=== PATIENT | female | born 1950 | race Caucasian/White ===

== ENCOUNTER 2016-08-10 19:24 | Emergency (ER) | payer MEDICARE ==
--- NOTE | 2016-08-10 20:46 | ED ---
General Adult HPI - General Chief complaint: Upper Respiratory Infection Stated complaint: chest & back pain/congestion Time Seen by Provider: 08/10/16 20:28 Source: patient, RN notes reviewed Mode of arrival: ambulatory Limitations: no limitations - History of Present Illness Initial comments: Chief complaint and history of present illness is a 66-year-old female with a complaint of painful cough that goes from her chest to her back. Also left ear pain. Flu-type symptoms with muscle aches and pains for 2 days. - Related Data Home Medications Medication Instructions Recorded Confirmed Canagliflozin/Metformin HCl 1 tab PO BID 08/10/16 08/10/16 [Invokamet 50-1,000 mg Tablet] Cholecalciferol [Vitamin D3] 5,000 unit PO DAILY 08/10/16 08/10/16 Diclofenac Sodium 50 mg PO BID 08/10/16 08/10/16 Lansoprazole [Prevacid] 15 mg PO DAILY 08/10/16 08/10/16 guaiFENesin [Mucinex] 600 mg PO Q12H PRN 08/10/16 08/10/16 Previous Rx's Medication Instructions Recorded Amoxicillin 500 mg PO Q8H #30 cap 08/10/16 Ibuprofen [Motrin] 600 mg PO Q6HR PRN #20 tab 08/10/16 Allergies Allergy/AdvReac Type Severity Reaction Status Date / Time methylprednisolone AdvReac MUSCLE Verified 08/10/16 20:26 SPASMS Review of Systems ROS Statement: Those systems with pertinent positive or pertinent negative responses have been documented in the HPI. Review of systems minimal no headache no stiff neck. She has a cough nonproductive causes pain to her front chest and back. Nausea vomiting 2 days ago. [place] feverish at home. All systems are reviewed. Past medical problems significant for insulin-dependent diabetes mellitus she denies any coronary artery disease. She has hyperlipidemia, osteoarthritis. Her surgeries include a , shoulder surgery. Family history melanoma. She has ALLERGIES to steroids by mouth but not IM. Nonsmoker nondrinker ROS Other: All systems not noted in ROS Statement are negative. Past Medical History Past Medical History: Coronary Artery Disease (CAD), Diabetes Mellitus, Hyperlipidemia, Osteoarthritis (OA) History of Any Multi-Drug Resistant Organisms: None Reported Past Surgical History: Section, Orthopedic Surgery Additional Past Surgical History / Comment(s): Shoulder surgery,thyroid surgery , csectionx 2 Past Psychological History: No Psychological Hx Reported Smoking Status: Never smoker Past Alcohol Use History: None Reported Past Drug Use History: None Reported General Exam - General Exam Comments Initial Comments: General: The patient is awake and alert, dry cough which causes anterior chest and back pain. Ongoing for 2 days. Muscle aches and pains, flu-type symptoms. Vital signs temp 98.5 pulse 100 respiratory rate 20 pulse ox on percent room air blood pressure 146/82. Elevated systolic noted. Pain she is in pain. She'll be following up with her family physician in the next week. Eye: Pupils are equal, round and reactive to light, extra-ocular movements are intact ; there is normal conjunctiva bilaterally. No signs of icterus. Ears, nose, mouth and throat: There are moist mucous membranes and no oral lesions. Left red tympanic membrane left otitis media.Neck: The neck is supple, there is no tenderness , no anterior cervical lymphadenopathy. Cardiovascular: There is a regular rate and rhythm. No murmur, rub or gallop is appreciated. Respiratory: Lungs are clear to auscultation, respirations are non-labored, breath sounds are equal. No wheezes, stridor, rales, or rhonchi. dry cough painful to both her anterior chest and back area. Gastrointestinal: Soft, non-distended, non-tender abdomen without masses or organomegaly noted. There is no rebound or guarding present. No CVA tenderness. Bowel sounds are unremarkable. Back: There is no tenderness to palpation in the midline. There is no obvious deformity. No rashes noted. Musculoskeletal: Normal ROM, no tenderness, There is no pedal edema. There is no calf tenderness or swelling. Sensation intact. Pulses equal bilaterally 2+. Neurological: No neuro deficits noted. Skin: Skin is warm and dry and no rashes or lesions are noted. Limitations: no limitations Course Vital Signs 08/10/16 08/10/16 19:29 20:32 Temperature 98.5 F 99.1 F Pulse Rate 100 Respiratory 20 Rate Blood Pressure 146/82 O2 Sat by Pulse 100 Oximetry Medical Decision Making - Medical Decision Making Medical decision making; Patient had a chest x-ray done AP and lateral views and reviewed by radiologist his impression is there is elevation of the hemidiaphragms bilaterally, particularly on the right. This compressed the lung parenchyma bilaterally. There is no definite focal airspace opacity, pleural effusion, or pneumothorax seen. The cardiac silhouette size within normal limits. The osseous structures are intact. Impression; no definite acute cardiopulmonary process. As read by Dr. Master Virgil Ty was reported to be negative. The patient be treated with amoxicillin for left otitis media. Advised to use ibuprofen for pain and fever. Follow-up with family physician return emergency room as needed - Lab Data Lab Results 08/10/16 Range/Units 20:58 Influenza Type A RNA Not Detected (Not Detectd) Influenza Type B (PCR) Not Detected (Not Detectd) Disposition Clinical Impression: Left otitis media Disposition: HOME SELF-CARE Condition: Stable Instructions: Upper Respiratory Infection (ED), Otitis Media (ED) Additional Instructions: Use ibuprofen for pain and fever. Take amoxicillin until completed. Follow-up family physician return emergency room as needed Prescriptions: Amoxicillin 500 mg PO Q8H #30 cap Ibuprofen [Motrin] 600 mg PO Q6HR PRN #20 tab PRN Reason: Pain Time of Disposition: 21:47
--- NOTE | 2016-08-10 21:07 | XR ---
EXAMINATION TYPE: XR chest 2V DATE OF EXAM: 08/10/2016 8:56 PM COMPARISON: NONE HISTORY: Cough and congestion TECHNIQUE: Frontal and lateral views of the chest are obtained. FINDINGS: There is elevation of the hemidiaphragms bilaterally, particularly on the right. This comp resses the lung parenchyma bilaterally. There is no definite focal air space opacity, pleural effusion, or pneumothorax seen. The cardiac si lhouette size is within normal limits. The osseous structures are intact. IMPRESSION: No definite acute cardiopulmonary process.
[2016-08-10] MEDS ORDERED: AMOXICILLIN 500MG STARTER PACK 3 CAP BTL PO STA (21:21)
[2016-08-10] MEDS ORDERED: IBUPROFEN 600 MG STARTER PACK 4 TAB BTL PO STA (21:22)
[2016-08-10 21:56] VITALS: BP 174/81; PULSE 81; RESP 18; TEMP 97.2
== END 2016-08-10 21:56 | disposition home or self-care (01) ==
LOC: EC 19:24
DX: H66.92 Otitis media, unspecified, left ear (principal); J06.9 Acute upper respiratory infection, unspecified; M79.1 Myalgia; I25.10 Atherosclerotic heart disease of native coronary artery without angina pectoris; E11.9 Type 2 diabetes mellitus without complications; E78.5 Hyperlipidemia, unspecified; M19.90 Unspecified osteoarthritis, unspecified site; Z79.84 Long term (current) use of oral hypoglycemic drugs; Z79.899 Other long term (current) drug therapy; Z79.1 Long term (current) use of non-steroidal anti-inflammatories (NSAID); Z88.8 Allergy status to other drugs, medicaments and biological substances
CPT/HCPCS: 71020; 87502; 99283

== ENCOUNTER → 2020-03-23 | Outpatient (CLI) | payer MEDICARE ==
--- NOTE | 2020-03-23 18:59 | XR ---
EXAMINATION TYPE: XR scoliosis survey, 2 views DATE OF EXAM: 03/23/2020 Comparison: None Clinical History: 69-year-old female Scoliosis Findings: There is a rotary levoconvex scoliotic curvature centered along the lumbar spine with Martinez angle of 1 5 degrees. There is a slight dextroconvex undulation centered at the thoracolumbar junction and an ad ditional levoconvex curvature centered on the upper thoracic spine with Martinez angle of 12 degrees. Lateral view of the lumbar spine shows mild to moderate degenerative disc disease throughout and hype rtrophic facet arthropathy. Grade 1 anterolisthesis at L2-L3 and L4-L5. Grade 1 retrolisthesis at L1- L2. Impression: Levoconvex curvature centered at the upper thoracic spine with Martinez angle of 12 degrees and a rotary levoconvex curvature of the lumbar spine with Martinez angle of 15 degrees.
--- NOTE | 2020-03-23 22:51 | MR ---
EXAMINATION TYPE: MR cspine/tspine/lspine wo con DATE OF EXAM: 03/23/2020 COMPARISON: Scoliosis survey same day. Outside cervical and lumbar spine x-rays February 26, 2020. HISTORY: Cervicalgia, pain in T-spine, low back pain all per order. Low back pain for 6 months causin g pain into both thighs, feet, and calves per patient. TECHNIQUE: Multiplanar, multisequence imaging of the cervical, thoracic, and lumbar spine are all per formed without IV contrast. FINDINGS: C-SPINE: FINDINGS: Sagittal images of the cervical spine show the craniocervical junction to appear within nor mal limits. The cervical and upper thoracic spinal cord is normal in caliber and signal. There is gr cherelle 1 retrolisthesis C5 on C6 and C6 on C7. The vertebral body heights are normal. Moderate disc spa ce narrowing C5-C6 and C6-C7 levels with moderate anterior spurring The bone marrow signal intensity is within normal limits. Axial images show the C2-C3 level to appear within normal limits. Axial images at C3-C4 level show broad-based right paracentral disc protrusion effacing the anterior thecal sac and uncovertebral facet degenerative changes bilaterally causing moderate right greater th an left bilateral neural foraminal narrowing. Axial images at C4-C5 level show uncovertebral facet degenerative changes greater on the left with ce ntral disc protrusion. There is effacement of the anterior thecal sac and mild bilateral neural gurdeep inal narrowing. Axial images at C5-C6 level show spondylolisthesis with broad-based posterior disc protrusion effacin g anterior thecal sac and causing advanced left and moderate to advanced right-sided neural foraminal narrowing. Axial images at C6-C7 level show spondylolisthesis and broad-based right paracentral disc protrusion effacing ventral thecal sac and causing moderate right greater than left bilateral neural foraminal n arrowing. Axial images at C7-T1 level show broad-based posterior disc protrusion effacing anterior thecal sac a nd causing mild bilateral neural foraminal narrowing. There is an absent right thyroid lobe suspected. There is greater than 1 cm left thyroid nodule axial image 19. IMPRESSION: Multilevel degenerative changes as detailed above. Spondylolisthesis and degenerative kathy nges most prominent at C5-C6 and C6-C7 levels. Greater than 1 cm left thyroid nodule, thyroid ultraso und follow-up advised if this is not known finding. T-SPINE: FINDINGS: Spinal cord shows normal course, caliber, and signal as it courses the thoracic spine. Vert ebral body heights are satisfactory. There is levoconvex scoliotic curvature centered in the upper th oracic spine though less prominent than on same day plain films. There is hemangioma involving the T7 vertebra posteriorly sagittal image 9. This space heights are maintained. Tiny posterior disc hernia tions are present T1-T2, T5-T6, T6-T7, and T9-T10 through the T12-L1 levels on sagittal images. Mild multilevel anterior spurring. Review of the axial images confirms above disc herniations most prominent in the lower thoracic spine where there is additional uncovertebral facet degenerative change effacing posterior lateral thecal sac at T10-T11 level on axial image 9. Slight asymmetric thickening left adrenal gland favors benign lipid rich hyperplasia. IMPRESSION: Slight levoconvex scoliotic curvature with multilevel small disc herniations greatest in the lower thoracic spine as detailed above. L-SPINE: There is slight levoconvex scoliotic curvature centered at L3 level less prominent than sta nding plain films. Sagittal images of the lumbar spine show vertebral body heights to appear satisfa ctory. Straightening of lumbar spine is present with grade 1 retrolisthesis L1 on L2 and L5 and S1. G rade 1 anterolisthesis L4 and L5 is present. Multilevel disc desiccation is present. There is advance d disc space narrowing L5-S1 level. There is moderate to advanced disc space narrowing L2-L3 level wi th heterogeneous Modic type II endplate 3 endplate changes along with focal moderate anterior spurrin g. The conus medullaris is normal in position and signal ending at T12-L1 disc space level. Axial images at T12-L1 level shows left paracentral disc protrusion effacing the anterolateral thecal sac.. Bilateral neural foramina. Axial images at L1-L2 level show spondylolisthesis with mild/moderate broad disc bulge effacing the a nterior thecal sac and mild facet arthropathy bilaterally, patent bilateral neural foramina. Axial images at L2-L3 level show moderate to advanced broad-based disc bulge effacing the anterior th ecal sac with moderate facet degenerative changes and ligament flavum hypertrophy causing posterolate ral thecal sac. There is moderate right and mild left-sided neural foraminal narrowing. Axial images at L3-L4 level shows moderate broad-based disc bulge effacing the anterior thecal sac. T here is moderate facet degenerative change and ligamentum flavum hypertrophy effacing posterior later al thecal sac. There is mild right and moderate left-sided neural foraminal narrowing noted. Axial images at L4-L5 level shows moderate to advanced facet degenerative changes and ligament flavum hypertrophy effacing posterior lateral thecal sac. There is mild to moderate broad disc bulge minima lly effacing the anterior thecal sac. Patent bilateral neural foramina noted. Axial images at L5-S1 level mild facet arthropathy bilaterally. There is focal central disc protrusio n but the spinal canal is preserved as there is increased epidural fat. Patent bilateral neural gurdeep gretchen noted. IMPRESSION: Straightening of the lumbar spine with multilevel degenerative changes, greatest degree o f spinal canal effacement or stenosis L2-L3 and L3-L4 levels as detailed above.
== END | disposition home or self-care (01) ==
LOC: RADMRIMAIN 12:24
PROVIDERS: ATTEND Orthopaedic Surgery
DX: M48.061 Spinal stenosis, lumbar region without neurogenic claudication (principal); M51.24 Other intervertebral disc displacement, thoracic region; M43.12 Spondylolisthesis, cervical region; M47.812 Spondylosis without myelopathy or radiculopathy, cervical region; M47.816 Spondylosis without myelopathy or radiculopathy, lumbar region; M41.84 Other forms of scoliosis, thoracic region; M41.86 Other forms of scoliosis, lumbar region
CPT/HCPCS: 72082; 72141; 72146; 72148

== ENCOUNTER → 2020-03-26 | Outpatient (CLI) | payer MEDICARE ==
--- NOTE | 2020-03-26 12:52 | CT ---
EXAMINATION TYPE: CT cervical spine wo con DATE OF EXAM: 03/26/2020 COMPARISON: None HISTORY: 69-year-old female M54.2, cervicalgia, Neck pain TECHNIQUE: Contiguous axial scanning of the cervical spine without IV contrast. Coronal and sagittal reconstructions performed. CT DLP: 409 mGycm Automated exposure control for dose reduction was used. FINDINGS: No craniocervical junction unremarkable, predental space widening, or prevertebral soft tissue swelli ng. Reversal of the normal cervical lordosis. Grade 1 anterolisthesis at C3-C4 and C4-C5 and grade 1 retrolisthesis at C5-C6. Moderate to advanced discussion plate degenerative change at C5-C6 with a disc osteophyte complex cau sing a moderate spinal canal stenosis, AP canal dimension estimated at 6.8 mm. No acute fracture the cervical spine. Multilevel facet and uncovertebral joint arthropathy. At C3-C4, [id number] right neuroforaminal stenosis. At C4-C5, moderate left and mild right neuroforaminal stenosis. At C5-C6, severe left and moderate to severe right neuroforaminal stenosis. At C6/C7, moderate to severe right and moderate left neuroforaminal stenosis. Diminutive right lobe of the thyroid gland. IMPRESSION: 1. MODERATE TO SEVERE DEGENERATIVE DISC DISEASE PARTICULARLY AT C5-C6 WHERE DISC OSTEOPHYTE COMPLEX C ONTRIBUTES TO A MODERATE SPINAL CANAL STENOSIS. 2. HYPERTROPHIC FACET AND UNCOVERTEBRAL JOINT ARTHROPATHY WITH VARIABLE NEURAL FORAMINAL STENOSES OUTLINED ABOVE. 3. DEGENERATIVE GRADE 1 SPONDYLOLISTHESES AT C3-C4, C4-C5, AND C5-C6.
--- NOTE | 2020-03-26 13:20 | CT ---
EXAMINATION TYPE: CT thoracic spine wo con DATE OF EXAM: 03/26/2020 COMPARISON: None HISTORY: 69-year-old female M54.6, Thoracic pain TECHNIQUE: Contiguous axial scanning of the thoracic spine without IV contrast. Coronal and sagittal reconstructions performed. CT DLP: 1032.16 mGycm Automated exposure control for dose reduction was used. FINDINGS: Incidental anterior cortical irregularity involving the sternal manubrium. Refer to sagittal image 20 . Possible motion artifact. Correlate for any history of injury and for any point tenderness here to exclude a fracture. Vertebral body heights are preserved and alignment is maintained. Scattered mild to moderate anterior endplate spondylosis especially upper thoracic spine and at T8-T9 . Suggestion of a broad-based posterior disc protrusion at T12-L1 may cause mild spinal canal narrowing . On the left, facet arthropathy contributes to moderate neural foraminal stenosis at T10-T11 and mil d at T9-T10. On the right, changes result in mild neural foraminal stenosis at T9-T10 and T10-T11. IMPRESSION: 1. NO VERTEBRAL COMPRESSION COLLAPSE OR MALALIGNMENT. SCATTERED MILD DEGENERATIVE DISC DISEASE ESPECI ALLY IN THE LOWER THORACIC SPINE. 2. SCATTERED FACET ARTHROPATHY WELL RESULTING IN MILD TO MODERATE NEURAL FORAMINAL STENOSES AT T9- T10 AND T10-T11. 3. BROAD-BASED DISC PROTRUSION AT T12-L1 MAY CAUSE MILD NARROWING OF THE SPINAL CANAL. 4. ANTERIOR CORTICAL IRREGULARITY INVOLVING THE STERNAL MANUBRIUM, SUSPECTED MOTION ARTIFACT. CORRELA TE FOR ANY PINPOINT TENDERNESS AND HISTORY OF INJURY TO EXCLUDE A FRACTURE HERE.
--- NOTE | 2020-03-26 13:33 | CT ---
EXAMINATION TYPE: CT lumbar spine wo con DATE OF EXAM: 03/26/2020 COMPARISON: None HISTORY: 69-year-old female M54.5, lumbago, Low back pain TECHNIQUE: Contiguous axial scanning of the lumbar spine without IV contrast. Coronal and sagittal re constructions performed. CT DLP: 1098.9 mGycm Automated exposure control for dose reduction was used. FINDINGS: Interbody ankylosis at L5-S1. 5 lumbar type vertebral bodies. Slight degenerated levoconvex curvature of the lumbar spine. Advanced degenerative disc disease L2-L3 and [id number] additional levels. Vertebral body heights are preserved. Hypertrophic facet arthropathy throughout with grade 1 anterolisthesis at L5-S1. Disc bulging is present throughout. There is also a component of congenital spinal canal stenosis in the lumbar spine with AP canal dimension of 9 mm. Overall moderate spinal canal stenosis at L3-L4 and possibly moderate to severe at L4-L5 and L2-L3. On the left, there is variable mild neural foraminal narrowing throughout. On the right, moderate foraminal stenosis at L2-L3 and mild at additional levels. IMPRESSION: 1. MODERATE MULTILEVEL DEGENERATIVE DISC DISEASE SUPERIMPOSED ON A CONGENITAL SPINAL CANAL STENOSIS. MORE ADVANCED DEGENERATIVE DISC DISEASE AT L2-L3. 2. HYPERTROPHIC FACET ARTHROPATHY THROUGHOUT WITH DEGENERATIVE GRADE 1 ANTEROLISTHESIS AT L4-L5. 3. DEGENERATIVE INTERBODY ANKYLOSIS AT L5-S1. 4. MODERATE SPINAL CANAL STENOSIS AT L3-L4, POSSIBLY MODERATE TO SEVERE AT L2-L3 AND L4-L5. 5. MODERATE RIGHT NEURAL FORAMINAL STENOSIS AT L2-L3.
== END | disposition home or self-care (01) ==
LOC: RADCTMAIN 10:34
PROVIDERS: ATTEND Orthopaedic Surgery
DX: M48.02 Spinal stenosis, cervical region (principal); M48.04 Spinal stenosis, thoracic region; M48.061 Spinal stenosis, lumbar region without neurogenic claudication; M51.24 Other intervertebral disc displacement, thoracic region; M43.12 Spondylolisthesis, cervical region; M43.16 Spondylolisthesis, lumbar region; M50.322 Other cervical disc degeneration at C5-C6 level; M51.34 Other intervertebral disc degeneration, thoracic region; M51.36 Other intervertebral disc degeneration, lumbar region; M47.812 Spondylosis without myelopathy or radiculopathy, cervical region; M47.814 Spondylosis without myelopathy or radiculopathy, thoracic region; M47.816 Spondylosis without myelopathy or radiculopathy, lumbar region; M25.78 Osteophyte, vertebrae; M43.27 Fusion of spine, lumbosacral region
CPT/HCPCS: 72125; 72128; 72131

== ENCOUNTER → 2020-05-05 | Day surgery (SDC) | payer MEDICARE ==
[2020-05-01 13:22] VITALS: BMI 33.0
[~2020-05-05] MED LIST: INSULIN ASPART (NovoLOG) 100 UNIT/ML VIAL SQ ONE; LACTATED RINGERS 1,000 ML IV SCH
[2020-05-05 13:07] VITALS: BP 185/84; PULSE 80; RESP 17; TEMP 96.9
[2020-05-05 13:08] LABS: Glucose,Whole Blood 311 mg/dL (75-99)
--- NOTE | 2020-05-05 13:16 | P.PN ---
Progress Note - Text Progress Note Date: 05/05/20 This is 69 years old female who is scheduled to have right-sided transforaminal epidural steroid injections under fluoroscopy guidance, and she is diagnosed with lumbar radiculopathy lumbar degenerative disc disease and lumbar spondylosis, and the preop holding area after I explained to the patient the procedure risk and benefit we checked the blood sugar , and it was 311 , patient is diabetic and in the view that we need to give steroid to perform the procedure, this will increase the risk of complications secondary to the procedure for this reason ,I will cancel the procedure ,and patient will see her primary care and she will follow up with pain clinic after her blood sugars stabilized, at that time we will do right-sided transforaminal epidural steroid injection at L2-3 and L3 4
[2020-05-05 13:32] LABS: Glucose,Whole Blood 335 mg/dL (75-99)
== END ==
LOC: ORPAIN 12:42
PROVIDERS: ATTEND Specialist
DX: M47.26 Other spondylosis with radiculopathy, lumbar region (principal); M51.16 Intervertebral disc disorders with radiculopathy, lumbar region; Z53.8 Procedure and treatment not carried out for other reasons; E11.65 Type 2 diabetes mellitus with hyperglycemia; Z88.8 Allergy status to other drugs, medicaments and biological substances

== ENCOUNTER 2020-08-30 16:42 | Emergency (ER) | payer MEDICARE ==
[2020-08-30 16:49] VITALS: TEMP 97.8
[2020-08-30] MEDS ORDERED: ONDANSETRON 4 MG/2 ML VIAL IVP STA (17:01)
[2020-08-30] MEDS ORDERED: SODIUM CHLORIDE 0.9% 500 ML 500 ML IV ONE (17:01)
[2020-08-30] MEDS ORDERED: MECLIZINE 12.5 MG TAB PO STA (17:01)
[2020-08-30 17:12] LABS: Basophils # (A) 0.1 k/uL (0-0.2); Basophils % (A) 1 %; Eosinophils # (A) 0.1 k/uL (0-0.7); Eosinophils % (A) 2 %; HCT 40.7 % (34.0-46.0); Lymphocytes # (A) 2.4 k/uL (1.0-4.8); Lymphocytes % (A) 32 %; MCH 31.4 pg (25.0-35.0); MCHC 34.3 g/dL (31.0-37.0); MCV 91.5 fL (80.0-100.0); Mean Platelet Volume 8.4; Monocytes # (A) 0.3 k/uL (0-1.0); Monocytes % (A) 4 %; Neutrophils # (A) 4.5 k/uL (1.3-7.7); Neutrophils % (A) 61 %; Platelet Count 183 k/uL (150-450); RBC 4.45 m/uL (3.80-5.40); RDW 13.6 % (11.5-15.5); WBC 7.4 k/uL (3.8-10.6)
--- NOTE | 2020-08-30 17:17 | ED ---
Dizziness HPI - General Chief Complaint: Dizziness Stated Complaint: Dizziness Time Seen by Provider: 08/30/20 16:50 Source: patient Mode of arrival: wheelchair Limitations: no limitations - History of Present Illness Initial Comments: This is a 70-year-old female who presents emergency department for dizziness and nausea. The patient states that it started around 9 AM after she took her shower this morning. She describes it as a room spinning sensation which gives her motion sickness. She states that she did vomit once today. She states that she has no focal neurologic deficits. She denies any focal weakness, numbness, difficult he was speech or swallowing. She states that she is been able to walk okay. However when she turns her head a certain way she gets these significant episodes of dizziness which then slowly subside over the next few minutes. She does have a history of vertigo in the past and states that this is similar. She currently denies any dizziness when sitting still. No other complaints. - Related Data Home Medications Medication Instructions Recorded Confirmed Hydrocodone/Acetaminophen [[place] 1 tab PO Q8H PRN 05/01/20 08/30/20 10-325] Atorvastatin [Lipitor] 20 mg PO HS 08/30/20 08/30/20 Canagliflozin/Metformin HCl 1 tab PO BID 08/30/20 08/30/20 [Invokamet 150-1,000 mg Tablet] Diclofenac Sodium [Voltaren] 150 mg PO DAILY 08/30/20 08/30/20 Insulin Lispro [Admelog] See Protocol SQ DAILY PRN MDD OVER 08/30/20 08/30/20 150 metFORMIN HCL 1,000 mg PO BID 08/30/20 08/30/20 Previous Rx's Medication Instructions Recorded Meclizine [Antivert] 25 mg PO TID #21 tab 08/30/20 Allergies Allergy/AdvReac Type Severity Reaction Status Date / Time gabapentin [From Neurontin] AdvReac MUSCLE Verified 08/30/20 18:19 SPASMS methylprednisolone AdvReac MUSCLE Verified 08/30/20 18:19 SPASMS Review of Systems ROS Statement: Those systems with pertinent positive or pertinent negative responses have been documented in the HPI. ROS Other: All systems not noted in ROS Statement are negative. Past Medical History Past Medical History: Coronary Artery Disease (CAD), Diabetes Mellitus, Hyperlipidemia, Osteoarthritis (OA), Thyroid Disorder History of Any Multi-Drug Resistant Organisms: None Reported Past Surgical History: Section Additional Past Surgical History / Comment(s): Shoulder surgery,thyroid surgery, csectionx 2 Past Psychological History: No Psychological Hx Reported Smoking Status: Never smoker Past Alcohol Use History: None Reported Past Drug Use History: None Reported General Exam - General Exam Comments Initial Comments: Constitutional: Awake alert Appears comfortable Head: Normocephalic atraumatic Eyes: no conjunctival injection No scleral icterus EOMI, there is nystagmus with Jose Rafael-Hallpike testing to the right. The nystagmus is fatigable after a few seconds Neck: No JVD Supple Heart: Regular rate rhythm normal S1-S2 no murmurs Lungs: Clear to auscultation bilaterally No wheezing No rales Abdomen: Soft nondistended nontender Extremities: Non edematous DP pulses intact Radial pulses intact Neuro: A&Ox3, crowner 2 through 12 are grossly intact, 5 out of 5 strength in upper and lower extremities bilaterally, normal finger to nose and heel to batista testing bilaterally No focal neurologic deficits Psych: Appropriate mood and affect Limitations: no limitations Course Vital Signs 08/30/20 08/30/20 16:46 18:24 Temperature 97.8 F Pulse Rate 76 87 Respiratory 20 16 Rate Blood Pressure 170/78 138/78 O2 Sat by Pulse 97 99 Oximetry EKG Findings - EKG Comments: EKG Findings:: EKG showing normal sinus rhythm with a rate of 77. There is no abnormal ST 7 changes or T-wave or QTC is 441. Other intervals normal. No ectopy. Medical Decision Making - Medical Decision Making Is a 70-year-old female who presents emergency department for dizziness. The patient had no focal neurologic findings on examination. She did not appear to be acutely distressed however did have a positive Jose Rafael-Hallpike to the right. The patient was given Antivert and Zofran with complete resolution of her symptoms. She was able to move her head back and forth without any recurrence of her symptoms. The patient's blood work was performed and unremarkable. EKG was unremarkable. The patient's going to be sent home with Antivert to use as needed for vertigo. Follow up closely with her primary doctor. She can return emergency Department if she has persistent or worsening symptoms or she devel oped any focal neurologic symptoms. All questions were answered. - Lab Data Result diagrams: 08/30/20 16:54 08/30/20 16:54 Lab Results 08/30/20 08/30/20 Range/Units 16:54 16:54 WBC 7.4 (3.8-10.6) k/uL RBC 4.45 (3.80-5.40) m/uL Hgb 14.0 (11.4-16.0) gm/dL Hct 40.7 (34.0-46.0) % MCV 91.5 (80.0-100.0) fL MCH 31.4 (25.0-35.0) pg MCHC 34.3 (31.0-37.0) g/dL RDW 13.6 (11.5-15.5) % Plt Count 183 (150-450) k/uL MPV 8.4 Neutrophils % 61 % Lymphocytes % 32 % Monocytes % 4 % Eosinophils % 2 % Basophils % 1 % Neutrophils # 4.5 (1.3-7.7) k/uL Lymphocytes # 2.4 (1.0-4.8) k/uL Monocytes # 0.3 (0-1.0) k/uL Eosinophils # 0.1 (0-0.7) k/uL Basophils # 0.1 (0-0.2) k/uL Sodium 133 L (137-145) mmol/L Potassium 4.4 (3.5-5.1) mmol/L Chloride 103 (98-107) mmol/L Carbon Dioxide 23 (22-30) mmol/L Anion Gap 7 mmol/L BUN 17 (7-17) mg/dL Creatinine 0.57 (0.52-1.04) mg/dL Est GFR (CKD-EPI)AfAm >90 (>60 ml/min/1.73 sqM) Est GFR (CKD-EPI)NonAf >90 (>60 ml/min/1.73 sqM) Glucose 222 H (74-99) mg/dL Calcium 8.9 (8.4-10.2) mg/dL Total Bilirubin 0.5 (0.2-1.3) mg/dL AST 26 (14-36) U/L ALT 32 (4-34) U/L Alkaline Phosphatase 83 (38-126) U/L Total Protein 6.3 (6.3-8.2) g/dL Albumin 3.4 L (3.5-5.0) g/dL Disposition Clinical Impression: Vertigo Disposition: HOME SELF-CARE Condition: Stable Instructions (If sedation given, give patient instructions): Vertigo (ED) Prescriptions: Meclizine [Antivert] 25 mg PO TID #21 tab Is patient prescribed a controlled substance at d/c from ED?: No Referrals: Clark Lockwood MD [Primary Care Provider] - 1-2 days
[2020-08-30 17:23] LABS: ALT 32 U/L (4-34); AST 26 U/L (14-36); African American GFR (CKD) >90 (>60 ml/min/1.73 sqM); Albumin 3.4 g/dL (3.5-5.0); Alkaline Phosphatase 83 U/L (38-126); Anion Gap 7 mmol/L; Blood Urea Nitrogen 17 mg/dL (7-17); Calcium 8.9 mg/dL (8.4-10.2); Carbon Dioxide 23 mmol/L (22-30); Chloride 103 mmol/L (98-107); Glucose 222 mg/dL (74-99); Non-African American GFR(CKD) >90 (>60 ml/min/1.73 sqM); Potassium 4.4 mmol/L (3.5-5.1); Sodium 133 mmol/L (137-145); Total Bilirubin 0.5 mg/dL (0.2-1.3); Total Protein 6.3 g/dL (6.3-8.2)
[2020-08-30 18:25] VITALS: BP 138/78; PULSE 87; RESP 16
== END 2020-08-30 18:25 | disposition home or self-care (01) ==
LOC: EC 16:42
DX: R42 Dizziness and giddiness (principal); I25.10 Atherosclerotic heart disease of native coronary artery without angina pectoris; E11.9 Type 2 diabetes mellitus without complications; E78.5 Hyperlipidemia, unspecified; M19.90 Unspecified osteoarthritis, unspecified site; Z79.4 Long term (current) use of insulin
CPT/HCPCS: 36415; 93005; 80053; 85025; 99284; 96374; 96361; J2405

== ENCOUNTER 2020-10-13 10:19 | Inpatient (IN) | payer MEDICARE ==
[2020-10-13 10:28] LABS: Glucose,Whole Blood 263 mg/dL (75-99)
--- NOTE | 2020-10-13 11:03 | ED ---
General Adult HPI - General Chief complaint: Dizziness Stated complaint: slurred speech/dizzy/vision changes Time Seen by Provider: 10/13/20 10:22 Source: patient Mode of arrival: wheelchair Limitations: no limitations - History of Present Illness Initial comments: Dictation was produced using [employer] dictation software. please excuse any grammatical, word or spelling errors. This patient was cared for during a federal and state declared state of emergency secondary to Covid 19 Chief Complaint: 70-year-old female presenting with strokelike symptoms for 3 weeks History of Present Illness: Patient is a 70-year-old female she has past medical history coronary artery disease, diabetes dyslipidemia. States that 3 weeks again developing dizziness and slurred speech. She had not sought medical attention for this. She called primary care doctor today and was told to come to the emergency department. Patient lives at home by herself. The ROS documented in this emergency department record has been reviewed and confirmed by me. Those systems with pertinent positive or negative responses have been documented in the HPI. All other systems are other negative and/or noncontributory. PHYSICAL EXAM: General Impression: Alert and oriented x3, not in acute distress HEENT: Normocephalic atraumatic, extra-ocular movements intact, pupils equal and reactive to light bilaterally, mucous membranes moist. Cardiovascular: Heart regular rate and rhythm Chest: Able to complete full sentences, no retractions, no tachypnea Abdomen: abdomen soft, non-tender, non-distended, no organomegaly Musculoskeletal: Pulses present and equal in all extremities, no peripheral edema Motor: no focal deficits noted Neurological: Left lower facial droop with deficit to light touch to the left lower face. No drift of the extremities. She does have slurred speech. No aphasia. Skin: Intact with no visualized rashes Psych: Normal affect and mood ED course: 70 yo female with strokelike symptoms for 3 weeks. Patient has an NIH of 3. Vital signs upon arrival are within acceptable limits. Patient's symptomatic for 3 weeks. Patient that a candidate for TPA or thrombectomy. Laboratory evaluation obtained. CBC, coag panel, metabolic panel is unremarkable. Troponin is negative. Magnesium slightly depressed at 1.4. Patient given magnesium. Computed tomography scan the brain shows no acute injury cranial processes. CT angios the head and neck was obtained showing no large vessel occlusion. Patient will be admitted for CVA. Neurology consulted. Patient given aspirin. Case discussed with sound physician Dr. Dubois. EKG interpretation: Ventricular rate 80, normal sinus rhythm, TN interval 160, QRS 68, QTC 422. No TN prolongation, no QTC prolongation, no ST or T-wave changes noted. EKG compared to 08/30/2020 showing no changes. Overall, this EKG is unremarkable - Related Data Home Medications Medication Instructions Recorded Confirmed Hydrocodone/Acetaminophen [[place] 1 tab PO Q8H PRN 05/01/20 10/13/20 10-325] Atorvastatin [Lipitor] 20 mg PO HS 08/30/20 10/13/20 Diclofenac Sodium [Voltaren] 75 mg PO BID 08/30/20 10/13/20 Insulin Lispro [Admelog] See Protocol SQ ACHS PRN 08/30/20 10/13/20 metFORMIN HCL 1,000 mg PO BID 08/30/20 10/13/20 Canagliflozin [Invokana] 300 mg PO DAILY 10/13/20 10/13/20 Meclizine [Antivert] 25 mg PO TID PRN 10/13/20 10/13/20 Allergies Allergy/AdvReac Type Severity Reaction Status Date / Time gabapentin [From Neurontin] AdvReac MUSCLE Verified 10/13/20 11:07 SPASMS methylprednisolone AdvReac MUSCLE Verified 10/13/20 11:07 SPASMS Review of Systems ROS Statement: Those systems with pertinent positive or pertinent negative responses have been documented in the HPI. ROS Other: All systems not noted in ROS Statement are negative. Past Medical History Past Medical History: Coronary Artery Disease (CAD), Diabetes Mellitus, Hyperlipidemia, Osteoarthritis (OA), Thyroid Disorder History of Any Multi-Drug Resistant Organisms: None Reported Past Surgical History: Section Additional Past Surgical History / Comment(s): Shoulder surgery,thyroid surgery, csectionx 2 Past Psychological History: No Psychological Hx Reported Smoking Status: Never smoker Past Alcohol Use History: None Reported Past Drug Use History: None Reported General Exam Limitations: no limitations Course Vital Signs 10/13/20 10/13/20 10:23 12:35 Temperature 97.9 F Pulse Rate 97 73 Respiratory 18 18 Rate Blood Pressure 153/90 144/76 O2 Sat by Pulse 97 98 Oximetry Medical Decision Making - Lab Data Result diagrams: 10/13/20 11:33 10/13/20 11:33 Lab Results 10/13/20 10/13/20 10/13/20 Range/Units 10:26 11:33 11:33 WBC 8.2 (3.8-10.6) k/uL RBC 4.79 (3.80-5.40) m/uL Hgb 15.5 (11.4-16.0) gm/dL Hct 43.8 (34.0-46.0) % MCV 91.5 (80.0-100.0) fL MCH 32.4 (25.0-35.0) pg MCHC 35.4 (31.0-37.0) g/dL RDW 13.6 (11.5-15.5) % Plt Count 206 (150-450) k/uL MPV 8.2 Neutrophils % 50 % Lymphocytes % 40 % Monocytes % 5 % Eosinophils % 2 % Basophils % 1 % Neutrophils # 4.1 (1.3-7.7) k/uL Lymphocytes # 3.3 (1.0-4.8) k/uL Monocytes # 0.4 (0-1.0) k/uL Eosinophils # 0.2 (0-0.7) k/uL Basophils # 0.1 (0-0.2) k/uL PT 10.8 (9.0-12.0) sec INR 1.0 (<1.2) APTT 23.7 (22.0-30.0) sec Sodium (137-145) mmol/L Potassium (3.5-5.1) mmol/L Chloride (98-107) mmol/L Carbon Dioxide (22-30) mmol/L Anion Gap mmol/L BUN (7-17) mg/dL Creatinine (0.52-1.04) mg/dL Est GFR (CKD-EPI)AfAm (>60 ml/min/1.73 sqM) Est GFR (CKD-EPI)NonAf (>60 ml/min/1.73 sqM) Glucose (74-99) mg/dL POC Glucose (mg/dL) 263 H (75-99) mg/dL POC Glu [employer] [facility] Calcium (8.4-10.2) mg/dL Magnesium (1.6-2.3) mg/dL Total Bilirubin (0.2-1.3) mg/dL AST (14-36) U/L ALT (4-34) U/L Alkaline Phosphatase (38-126) U/L Troponin I (0.000-0.034) ng/mL Total Protein (6.3-8.2) g/dL Albumin (3.5-5.0) g/dL 10/13/20 10/13/20 Range/Units 11:33 11:33 WBC (3.8-10.6) k/uL RBC (3.80-5.40) m/uL Hgb (11.4-16.0) gm/dL Hct (34.0-46.0) % MCV (80.0-100.0) fL MCH (25.0-35.0) pg MCHC (31.0-37.0) g/dL RDW (11.5-15.5) % Plt Count (150-450) k/uL MPV Neutrophils % % Lymphocytes % % Monocytes % % Eosinophils % % Basophils % % Neutrophils # (1.3-7.7) k/uL Lymphocytes # (1.0-4.8) k/uL Monocytes # (0-1.0) k/uL Eosinophils # (0-0.7) k/uL Basophils # (0-0.2) k/uL PT (9.0-12.0) sec INR (<1.2) APTT (22.0-30.0) sec Sodium 139 (137-145) mmol/L Potassium 3.8 (3.5-5.1) mmol/L Chloride 104 (98-107) mmol/L Carbon Dioxide 26 (22-30) mmol/L Anion Gap 9 mmol/L BUN 20 H (7-17) mg/dL Creatinine 0.83 (0.52-1.04) mg/dL Est GFR (CKD-EPI)AfAm 83 (>60 ml/min/1.73 sqM) Est GFR (CKD-EPI)NonAf 72 (>60 ml/min/1.73 sqM) Glucose 265 H (74-99) mg/dL POC Glucose (mg/dL) (75-99) mg/dL POC Glu [employer] ID Calcium 9.8 (8.4-10.2) mg/dL Magnesium 1.4 L (1.6-2.3) mg/dL Total Bilirubin 0.5 (0.2-1.3) mg/dL AST 30 (14-36) U/L ALT 37 H (4-34) U/L Alkaline Phosphatase 96 (38-126) U/L Troponin I <0.012 (0.000-0.034) ng/mL Total Protein 6.7 (6.3-8.2) g/dL Albumin 3.7 (3.5-5.0) g/dL Disposition Clinical Impression: CVA (cerebral vascular accident) Disposition: ADMITTED IP TO THIS HOSP Condition: Fair Referrals: Clark Lockwood MD [Primary Care Provider] - 1-2 days Decision Time: 13:37
[2020-10-13 11:58] LABS: Basophils # (A) 0.1 k/uL (0-0.2); Basophils % (A) 1 %; Eosinophils # (A) 0.2 k/uL (0-0.7); Eosinophils % (A) 2 %; HCT 43.8 % (34.0-46.0); HGB 15.5 gm/dL (11.4-16.0); Lymphocytes # (A) 3.3 k/uL (1.0-4.8); Lymphocytes % (A) 40 %; MCH 32.4 pg (25.0-35.0); MCHC 35.4 g/dL (31.0-37.0); MCV 91.5 fL (80.0-100.0); Mean Platelet Volume 8.2; Monocytes # (A) 0.4 k/uL (0-1.0); Monocytes % (A) 5 %; Neutrophils # (A) 4.1 k/uL (1.3-7.7); Neutrophils % (A) 50 %; Platelet Count 206 k/uL (150-450); RBC 4.79 m/uL (3.80-5.40); RDW 13.6 % (11.5-15.5); WBC 8.2 k/uL (3.8-10.6)
[2020-10-13 12:10] LABS: Albumin 3.7 g/dL (3.5-5.0); Calcium 9.8 mg/dL (8.4-10.2); Magnesium 1.4 mg/dL (1.6-2.3); Potassium 3.8 mmol/L (3.5-5.1); Total Bilirubin 0.5 mg/dL (0.2-1.3); Total Protein 6.7 g/dL (6.3-8.2)
[2020-10-13 12:11] LABS: Partial Thromboplastin Time 23.7 sec (22.0-30.0); Prothrombin Time 10.8 sec (9.0-12.0)
--- NOTE | 2020-10-13 12:38 | XR ---
EXAMINATION TYPE: XR chest 1V portable DATE OF EXAM: 10/13/2020 COMPARISON: 08/10/2016 INDICATION: CVA TECHNIQUE: Single frontal view of the chest is obtained. FINDINGS: The heart size is normal. The pulmonary vasculature is normal. The lungs are clear. There is some chronic elevation of the right diaphragm IMPRESSION: 1. No acute pulmonary process.
[2020-10-13] MEDS ORDERED: ASPIRIN 81 MG PO STA (12:41)
--- NOTE | 2020-10-13 13:00 | CT ---
EXAMINATION TYPE: CT brain wo con DATE OF EXAM: 10/13/2020 COMPARISON: None HISTORY: Visual disturbance and slurred speech. CT DLP: combined DLP: 1648.[address] of the brain was performed. The ventricles, basal cisterns and sulci overlying the cerebral convexities demonstrate mild enlargem ent. There is no evidence for intracranial hemorrhage or sulcal effacement. There is decreased attenuation about the periventricular white matter and deep white matter of both c erebral hemispheres, compatible with chronic small vessel ischemia. Differential diagnosis does inclu de demyelination. No mass effects are seen.No midline shift. Osseous calvarium is intact. If symptoms persist consider MRI. IMPRESSION: 1. Age related atrophic and chronic small vessel ischemic change without acute intracranial process s een at this time.
--- NOTE | 2020-10-13 13:25 | CT ---
EXAMINATION TYPE: CT angio head neck DATE OF EXAM: 10/13/2020 COMPARISON: None HISTORY: Visual disturbance and slurred speech. CT DLP: combined DLP: 1648. mGycm CONTRAST: Performed with IV Contrast, patient injected with 65 mL of Isovue 370. Combination Contrast CTA cervical carotids and [place] CTA cervical carotids with 3-D recons truction Contrast CTA of the cervical carotids was performed 3-D reconstruction imaging obtained at a separate workstation. Right carotid system: Mild plaque is seen of the right common carotid artery. There is mild plaque a lso noted at the carotid bulb and proximal ICA. No significant diameter reduction. ECA is patent. Right vertebral artery appears unremarkable. Left carotid system: Mild plaque is seen of the left common carotid artery. There is mild plaque als o noted at the carotid bulb and proximal ICA. No significant diameter reduction. ECA is patent. Lef t vertebral artery appears unremarkable. Incidental thyroid nodules noted. IMPRESSION: 1. No significant diameter reduction to account for the patient's symptoms. CTA [place] with 3-D reconstruction Contrast CTA of the [place] was performed 3-D reconstruction imaging obtained at a separate workstation. Vertebrobasilar system as well as intracranial portions of the internal carotid arteries and their ma beatriz tributaries are patent. I do not see evidence for sizable aneurysm or vascular malformation. Pl ease note MRI provides greater sensitivity and specificity. Visualized brain appears grossly unremar kable. IMPRESSION: 1. No significant abnormality.
[2020-10-13] MEDS: MAGNESIUM SULFATE-D5W PMX 1 GM in DEXTROSE/WATER 1 100ML.BAG IVPB SCH ×3 (14:03→16:44)
[2020-10-13] MEDS ORDERED: NALOXONE 0.4 MG/ML 1 ML VIAL IV PRN (14:20)
[2020-10-13] MEDS ORDERED: ACETAMINOPHEN TAB 325 MG TAB PO PRN (14:20)
--- NOTE | 2020-10-13 14:45 | P.HPIM ---
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 Patient presented to the hospital this morning with a chief complaint of strokelike symptoms. Patient reports experiencing dizziness and slurred speech 3 weeks. Patient reports these symptoms have waxed and waned over the past 3 weeks and appeared to be worsening to her over the past 48 hours so she called her sister also noticed difficulty with her speech and then called her doctor's office and was instructed to come to the emergency department for further evaluation. Upon arrival to the emergency department NIH stroke scale was completed with a score of 3. A CT of her head was then completed reporting age related atrophic and chronic small vessel ischemic changes without any evidence of acute intercranial process. CTA head and neck also completed which was also negative for acute intracranial process and reporting no significant diameter reduction and internal carotid to account for patient's symptoms. CBC and BMP unremarkable with the exception of hyperglycemia with glucose of 265 and hypomagnesemia with magnesium of 1.4. Troponin less than 0.012 with EKG reporting normal sinus rhythm at 80 bpm with no noted T-wave or ST abnormalities revealing no acute ischemic changes. Patient admitted to the hospital under our services for continued medical management with consultation to neurology to rule out possible TIA/CVA. Patient currently has noted left-sided facial droop at left corner of mouth, cranial nerves II through XII are intact. Her speech was clear at time of assessment, however patient reports these symptoms have waxed and waned over the past 3 weeks worsening over the past 48 hours. Patient reports dizziness currently resolved, but reports this returns upon standing or movement. She cur rently denies having any changes in her vision or hearing, headache, numbness in her face or tongue, dysphagia, chest pain, palpitations, shortness of breath, abdominal pain, nausea, vomiting, or experiencing any new or changed numbness/weakness/tingling in extremities. Review of systems: Pertinent positives and negatives as discussed in HPI, a complete review of systems was performed and all other systems are negative. Physical exam: General: non toxic, no distress, appears at stated age Derm: warm, dry Head: atraumatic, normocephalic, symmetric Eyes: EOMI, no lid lag, anicteric sclera Mouth: no lip lesion, mucus membranes moist. Patient has slight left-sided facial droop noted to left corner of mouth. Cardiovascular: S1S2 normal with regular rate and rhythm. No murmur, gallop, or rub. Positive posterior tibial pulses bilaterally. Cap refill less than 2 seconds. Lungs: Respirations even, regular, and unlabored on room air. Lungs clear to auscultation bilaterally. No wheezes, rhonchi, or rales present. No accessory muscle usage. Abdominal: soft, nontender to palpation, no guarding, no appreciable organomegaly Ext: no gross muscle atrophy, no edema, no contractures. Limited range of motion to left upper extremity secondary to patient's reports of recurrent rotary cuff injuries requiring surgery and pt's reports of declining most recent recommendations for surgery. Neuro: CN II-XII grossly intact, patient does have noted left sided facial droop visible at corner of left mouth. Speech currently clear, however patient reports dysarthria has been waxing and waning 3 weeks. Psych: Alert, oriented, appropriate affect Plan of care: Intermittent episodes of Dizziness with dysarthria, rule out possible CVA/TIA -Initial NIH stroke scale was completed in the ED with a reported score of 3. -CT head reporting age related atrophic and chronic small vessel ischemic changes without any evidence of acute intercranial process. -CTA head and neck also completed which was also negative for acute intracranial process and reporting no significant diameter reduction and internal carotid to account for patient's symptoms. -Consult to neurology, Dr. Villavicenico. Appreciate further recommendations. -Echocardiogram -Consult PT/OT -Consult speech therapy. -Aspirin 324 mg by mouth 1 dose followed by 324 mg daily. -Increase atorvastatin to 40 mg nightly. -Lipid profile and hemoglobin A1c to be drawn along with a.m. labs. Type 2 insulin-dependent diabetes mellitus with hyperglycemia -Serum blood glucose 265. -Patient to continue Invokana and we will hold Glucophage at this time. Patient being placed on glycemic protocol with NovoLog sliding scale. -Hemoglobin A1c to be drawn along with a.m. labs. Hyperlipidemia -Increase nightly atorvastatin to 40 mg. -Lipid profile along with a.m. labs. The patient is admitted with an anticipated greater than 2 midnight stay for evaluation of possible CVA versus TIA. Surrogate decision-maker: Self CODE STATUS: Full code DVT prophylaxis: Lovenox Discussed with: Patient Anticipated discharge date: Clinical course to determine Anticipated discharge place: Home with possible home care A total of 45 minutes was spent on the care of this complex patient more than 50% of the time was spent in counseling and care coordination. Past Medical History Past Medical History: Coronary Artery Disease (CAD), Diabetes Mellitus, Hyperlipidemia, Osteoarthritis (OA), Thyroid Disorder History of Any Multi-Drug Resistant Organisms: None Reported Past Surgical History: Section Additional Past Surgical History / Comment(s): Shoulder surgery,thyroid surgery, csectionx 2 Past Psychological History: No Psychological Hx Reported Smoking Status: Never smoker Past Alcohol Use History: None Reported Past Drug Use History: None Reported Medications and Allergies Home Medications Medication Instructions Recorded Confirmed Type Hydrocodone/Acetaminophen [Kenner 1 tab PO Q8H PRN 05/01/20 10/13/20 History 10-325] Atorvastatin [Lipitor] 20 mg PO HS 08/30/20 10/13/20 History Diclofenac Sodium [Voltaren] 75 mg PO BID 08/30/20 10/13/20 History Insulin Lispro [Admelog] See Protocol SQ ACHS PRN 08/30/20 10/13/20 History metFORMIN HCL 1,000 mg PO BID 08/30/20 10/13/20 History Canagliflozin [Invokana] 300 mg PO DAILY 10/13/20 10/13/20 History Meclizine [Antivert] 25 mg PO TID PRN 10/13/20 10/13/20 History Allergies Allergy/AdvReac Type Severity Reaction Status Date / Time gabapentin [From Neurontin] AdvReac MUSCLE Verified 10/13/20 11:07 SPASMS methylprednisolone AdvReac MUSCLE Verified 10/13/20 11:07 SPASMS Physical Exam Vitals: Vital Signs Temp Pulse Resp BP Pulse Ox 10/13/20 12:35 73 18 144/76 98 10/13/20 10:23 97.9 F 97 18 153/90 97 Intake and Output 10/12/20 10/13/20 10/13/20 22:59 06:59 14:59 Other: Weight 82.554 kg Results CBC & Chem 7: 10/13/20 11:33 10/13/20 11:33 Labs: Abnormal Lab Results - Last 24 Hours (Table) 10/13/20 10/13/20 Range/Units 10:26 11:33 BUN 20 H (7-17) mg/dL Glucose 265 H (74-99) mg/dL POC Glucose (mg/dL) 263 H (75-99) mg/dL Magnesium 1.4 L (1.6-2.3) mg/dL ALT 37 H (4-34) U/L <Edna Keller - Last Filed: 10/13/20 19:20> History of Present Illness I discussed the care with Layo Hernández NP and reviewed the findings and plan as documented in the note above. I did not physically speak with or examine the patient on this date. Past Medical History - Past Family History Brother(s) Family Medical History: Cancer Additional Family Medical History / Comment(s): Melanoma Sister(s) Family Medical History: Cancer Additional Family Medical History / Comment(s): Melanorma Physical Exam Osteopathic Statement: *. No significant issues noted on an osteopathic structural exam other than those noted in the History and Physical/Consult. Vitals: Vital Signs Temp Pulse Pulse Resp BP BP Pulse Ox 10/13/20 17:00 72 16 139/66 98 10/13/20 16:45 97.9 F 71 18 133/76 96 10/13/20 14:53 71 18 133/76 96 10/13/20 12:35 73 18 144/76 98 10/13/20 10:23 97.9 F 97 18 153/90 97 Intake and Output 10/13/20 10/13/20 10/13/20 06:59 14:59 22:59 Intake Total 240 Balance 240 Intake: Oral 240 Other: Weight 82.554 kg 82.554 kg Results CBC & Chem 7: 10/13/20 11:33 10/13/20 11:33 Labs: Abnormal Lab Results - Last 24 Hours (Table) 10/13/20 10/13/20 10/13/20 Range/Units 10:26 11:33 16:57 BUN 20 H (7-17) mg/dL Glucose 265 H (74-99) mg/dL POC Glucose (mg/dL) 263 H 283 H (75-99) mg/dL Magnesium 1.4 L (1.6-2.3) mg/dL ALT 37 H (4-34) U/L
[2020-10-13 17:00] LABS: Glucose,Whole Blood 283 mg/dL (75-99)
[2020-10-13] MEDS: INSULIN ASPART (NovoLOG) 100 UNIT/ML VIAL SQ SCH (17:06)
--- NOTE | 2020-10-13 18:54 | P.CNNES ---
History of Present Illness Consult date: 10/13/20 Requesting physician: Layo Hernández Reason for Consult: Rule out TIA/CVA History of Present Illness: Patient is a 70-year-old left-handed female with history of CAD, diabetes, dyslipidemia came to the hospital today at 10:19 AM for 3 week history of dizziness and slurred speech. Patient states that she received the Covid-19 vaccine by [employer] about 3 weeks ago. Right after she received the shot, she started feeling very tired, could hardly get off the bed, her eyes were burning and she was feeling dizzy, like her room would spin. While walking she felt as if the floor is coming up to her, and she has to hang onto the vasquez. She was hurting all over. She never had any cough or fever. Patient s tates that she came to ER, and was diagnosed with inner ear dysfunction, observed and then released on Antivert. (On reviewing electronic records, patient actually came 6 weeks ago on 08/30/2020). Her symptoms of dizziness persisted. When she lays down and turns her head, the room would spin. Patient states that she developed slurred speech about 1 week after the above-mentioned symptoms (2 weeks ago). It was noticed when she was talking on the phone with someone and all of a sudden she couldn't talk right and it was noticed by her sister as well. She could not comprehend. She later notes difficulty with driving on the road. Patient stayed home. She spoke to her primary physician this morning, who recommended her to go to the ER. Patient denies any numbness or tingling or focal weakness. Just feels generalized weak. No blurred vision or double vision. Patient states that her balance always have been not good, which is not worse in the last few weeks. Vital signs on arrival blood pressure 153/90, pulse 97, temperature 97.9. Computed tomography scan of the head showed age-related atrophic and chronic small vessel ischemic change without acute intradural process. CTA of head and neck showed no significant abnormality. No evidence of aneurysm or vascular malformation or stenosis. There is mild plaque noted at the carotid bulb and proximal ICA bilaterally. EKG shows normal sinus rhythm. Chest x-ray showed no acute cardiopulmonary disease. 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 ALT is 37 borderline. Troponin negative. Patient does take Lipitor 20 mg, metformin 1000 mg twice a day, insulin, meclizi ne, Invokana and Lynch. Patient has history of diabetes for 10 years, hypertension. Nonsmoker. She does not take any antiplatelet medications at home. Review of Systems As mentioned above in detail. Denies any chest pain or shortness of breath. All other 14 points of review of systems were reviewed and noncontributory. Patient denies any double vision or loss of vision. Past Medical History Past Medical History: Diabetes Mellitus, GERD/Reflux, Hyperlipidemia, Osteoarthritis (OA), Thyroid Disorder Additional Past Medical History / Comment(s): IDDM type II, neuropathy bilateral feet, hypothyroid, chronic neck/L shoulder and lumbar back pain, lumbar DDD/spondylosis, vertigo. History of Any Multi-Drug Resistant Organisms: None Reported Past Surgical History: Section Additional Past Surgical History / Comment(s): Bilateral shoulder surgery for rotator cuff, bilateral carpal tunnel releases, bilateral knee arthroscopic surgery, thyroid biopsy, CSection x2. Past Anesthesia/Blood Transfusion Reactions: Motion Sickness Smoking Status: Never smoker - Past Family History Brother(s) Family Medical History: Cancer Additional Family Medical History / Comment(s): Melanoma Sister(s) Family Medical History: Cancer Additional Family Medical History / Comment(s): Melanorma Medications and Allergies Home Medications Medication Instructions Recorded Confirmed Type Hydrocodone/Acetaminophen [Lynch 1 tab PO Q8H PRN 05/01/20 10/13/20 History 10-325] Atorvastatin [Lipitor] 20 mg PO HS 08/30/20 10/13/20 History Diclofenac Sodium [Voltaren] 75 mg PO BID 08/30/20 10/13/20 History Insulin Lispro [Admelog] See Protocol SQ ACHS PRN 08/30/20 10/13/20 History metFORMIN HCL 1,000 mg PO BID 08/30/20 10/13/20 History Canagliflozin [Invokana] 300 mg PO DAILY 10/13/20 10/13/20 History Meclizine [Antivert] 25 mg PO TID PRN 10/13/20 10/13/20 History Allergies Allergy/AdvReac Type Severity Reaction Status Date / Time gabapentin [From Neurontin] AdvReac MUSCLE Verified 10/13/20 11:07 SPASMS methylprednisolone AdvReac MUSCLE Verified 10/13/20 11:07 SPASMS Physical Examination - Vital Signs Vital Signs: Vital Signs Temp Pulse Resp BP Pulse Ox 10/13/20 16:45 97.9 F 71 18 133/76 96 10/13/20 14:53 71 18 133/76 96 10/13/20 12:35 73 18 144/76 98 10/13/20 10:23 97.9 F 97 18 153/90 97 Intake and Output 10/13/20 10/13/20 10/13/20 06:59 14:59 22:59 Other: Weight 82.554 kg 82.554 kg Patient is an elderly female, very pleasant in no acute distress. Patient is alert awake oriented to time place and person. Speech and language functions are normal. Attention, concentration and fund of knowledge is adequate. No obvious aphasia or dysarthria. On cranial examination, pupils are round and reacting to light, visual freeman are full on confrontation, however patient neglects the left side on double simultaneous stimulation. Her extraocular muscles are intact with no nystagmus. Face has left sided asymmetry, central type, tongue protrudes to the midline. Palatal elevation and sensation normal, hearing and shoulder shrug normal, facial sensation normal. Shoulder shrug normal. On muscle strength testing, there is left-sided drift, but the patient states that she has torn rotator cuff on the left and is always weak. The strength is normal in the biceps triceps, the cnc technician is slightly decreased on the left as compared to the right. Her strength is normal in bilateral lower limbs distally and proximally. Deep tendon reflexes are hypoactive and plantars are withdrawal bilaterally Sensory to touch is equal with no neglect on double simultaneous simulation. Cerebellar function showed no ataxia for [id number] testing. No dysdiadochokinesia. Tone and bulk of muscles normal. Gait normal. On general examination, there is no carotid bruit or murmur, S1-S2 audible. Abdomen is soft nontender. Chest is clear. Peripheral pulses are present. No edema. Results - Laboratory Findings CBC and BMP: 10/14/20 06:38 10/14/20 06:38 Abnormal Lab Findings: Abnormal Labs 10/13/20 10/13/20 10/13/20 10:26 11:33 16:57 BUN 20 H Glucose 265 H POC Glucose (mg/dL) 263 H 283 H Magnesium 1.4 L ALT 37 H Assessment and Plan Assessment: * Acute ischemic stroke. MRI of the brain revealed multiple small patchy areas is of ischemic infarction involving the distribution of superior branch of right MCA. Clinically, patient has minimal slurring, left facial brachial weakness, and left visual field neglect on double simultaneous stimulation. * Hypertension * Diabetes * Obesity * Recently received Gimenez virus vaccination by [employer] Plan: * Patient underwent MRI of the brain, which confirmed an acute stroke, in the distribution of right MCA in the superior division. * Patient has been started on aspirin. We will also add Plavix 75 mg (dual antiplatelet medications for 3 weeks). * Fasting a.m. lipid panel, hemoglobin A1c. * Telemetry monitoring to rule out paroxysmal A. fib. * PT OT, speech therapy. * We will follow.
[2020-10-13 20:10] LABS: Glucose,Whole Blood 230 mg/dL (75-99)
[2020-10-13] MEDS: CLOPIDOGREL 75 MG TAB PO SCH (20:15)
--- NOTE | 2020-10-13 20:40 | MR ---
MRI OF THE BRAIN WO History: Follow-up stroke. COMPARISON: Same-day CT. TECHNIQUE: Multiplanar multisequence MR imaging of the brain was obtained without the use of IV cont rast. FINDINGS: There are scattered multifocal small restricted diffusion within the right frontoparietal lobe.No acu te intracranial hemorrhage or abnormal extra-axial fluid collection are noted.There is no midline maurice ft or mass effect. There is moderate white matter T2 FLAIR hyperintensities, in keeping with chronic microvascular ischemic changes. There is mild parenchymal volume loss. Visualized vascular flow voids are unremarkable. Visualized paranasal sinuses and mastoid air cells are patent and aerated. IMPRESSION: Acute/subacute right frontoparietal ischemic infarct. Chronic microvascular ischemic changes.
[2020-10-13] MEDS ORDERED: ATORVASTATIN 40 MG TAB PO SCH (21:00)
[2020-10-13] MEDS: MECLIZINE 25 MG TAB PO PRN (23:44)
[2020-10-13] MEDS: MELATONIN 3 MG TABLET PO PRN (23:44)
[2020-10-14 03:22] LABS: Hemoglobin A1C 8.8 % (4.0-6.0)
[2020-10-14] MEDS ORDERED: DICLOFENAC SODIUM GEL 100 GM TUBE TOPICAL PRN (04:45)
[2020-10-14] MEDS: HYDROcodone/APAP 10-325MG 1 EACH TAB PO PRN ×2 (05:05→22:29)
[2020-10-14 06:15] LABS: Glucose,Whole Blood 200 mg/dL (75-99)
[2020-10-14] MEDS: INSULIN ASPART (NovoLOG) 100 UNIT/ML VIAL SQ SCH ×5 (06:15→20:26)
[2020-10-14 07:35] LABS: Basophils # (A) 0.1 k/uL (0-0.2); Basophils % (A) 1 %; Eosinophils # (A) 0.2 k/uL (0-0.7); Eosinophils % (A) 2 %; HCT 42.4 % (34.0-46.0); HGB 14.4 gm/dL (11.4-16.0); Lymphocytes # (A) 3.1 k/uL (1.0-4.8); Lymphocytes % (A) 39 %; MCH 31.1 pg (25.0-35.0); MCV 91.5 fL (80.0-100.0); Mean Platelet Volume 8.4; Monocytes # (A) 0.4 k/uL (0-1.0); Monocytes % (A) 5 %; Neutrophils # (A) 4.1 k/uL (1.3-7.7); Neutrophils % (A) 52 %; Platelet Count 187 k/uL (150-450); RBC 4.63 m/uL (3.80-5.40); RDW 13.6 % (11.5-15.5)
[2020-10-14 07:40] LABS: African American GFR (CKD) >90 (>60 ml/min/1.73 sqM); Anion Gap 9 mmol/L; Blood Urea Nitrogen 21 mg/dL (7-17); Calcium 9.4 mg/dL (8.4-10.2); Carbon Dioxide 25 mmol/L (22-30); Chloride 101 mmol/L (98-107); Glucose 181 mg/dL (74-99); Magnesium 1.6 mg/dL (1.6-2.3); Non-African American GFR(CKD) 87 (>60 ml/min/1.73 sqM); Sodium 135 mmol/L (137-145)
[2020-10-14 07:41] LABS: Cholesterol 270 mg/dL (<200); HDL Cholesterol 47 mg/dL (40-60)
--- NOTE | 2020-10-14 07:42 | ECHOF ---
Referral Reason:Concerns for cerebrovascular disease. CVA vs TIA. MEASUREMENTS -------- HEIGHT: 149.9 cm WEIGHT: 82.6 kg BP: 133/67 RVIDd: 2.7 cm (< 3.3) IVSd: 1.0 cm (0.6 - 1.1) LVIDd: 3.4 cm (3.9 - 5.3) LVPWd: 1.0 cm (0.6 - 1.1) IVSs: 1.6 cm LVIDs: 2.3 cm LVPWs: 1.4 cm LA Diam: 3.0 cm (2.7 - 3.8) LAESV Index (A-L): 14.64 ml/m Ao Diam: 2.6 cm (2.0 - 3.7) AV Cusp: 1.9 cm (1.5 - 2.6) MV EXCURSION: 11.280 mm (> 18.000) MV EF SLOPE: 65 mm/s (70 - 150) EPSS: 0.5 cm MV E Anastacio: 1.07 m/s MV DecT: 225 ms MV A Anastacio: 1.04 m/s MV E/A Ratio: 1.03 RAP: 5.00 mmHg RVSP: 32.63 mmHg FINDINGS -------- Sinus rhythm. This was a technically good study. The left ventricular size is normal. Left ventricular wall thickness is normal. Overall left vent ricular systolic function is normal with, an EF between 60 - 65 %. The right ventricle is normal in size. Normal LA size by volume 22+/-6 ml/m2. The right atrium is normal in size. There is mild aortic valve sclerosis. Trace amount of aortic regurgitation. The mitral valve leaflets are mildly thickened. Mild mitral annular calcification present. Mild m itral regurgitation is present. Mild tricuspid regurgitation present. Right ventricular systolic pressure is normal at < 35 mmHg. Trace/mild (physiologic) pulmonic regurgitation. The aortic root size is normal. Normal inferior vena cava with normal inspiratory collapse consistent with estimated right atrial pre ssure of 5 mmHg. There is no pericardial effusion. CONCLUSIONS -------- 1. The left ventricular size is normal. 2. Left ventricular wall thickness is normal. 3. Overall left ventricular systolic function is normal with, an EF between 60 - 65 %. 4. There is mild aortic valve sclerosis. 5. Trace amount of aortic regurgitation. 6. The mitral valve leaflets are mildly thickened. 7. Mild mitral annular calcification present. 8. Mild mitral regurgitation is present. 9. Mild tricuspid regurgitation present. 10. Trace/mild (physiologic) pulmonic regurgitation. 11. There is no pericardial effusion. MANAGER RECOVERY: Liset Cook RDCS
[2020-10-14 07:51] LABS: Triglycerides 671 mg/dL (<150)
[2020-10-14] MEDS ORDERED: ASPIRIN 81 MG PO SCH (09:00)
[2020-10-14] MEDS: MECLIZINE 25 MG TAB PO PRN ×2 (09:46→19:58)
[2020-10-14] MEDS: CLOPIDOGREL 75 MG TAB PO SCH (09:47)
[2020-10-14] MEDS: ENOXAPARIN 40 MG/0.4 ML SYRINGE SQ SCH (09:47)
[2020-10-14] MEDS: Canagliflozin [Invokana] PO SCH (09:48)
[2020-10-14 11:59] LABS: Glucose,Whole Blood 351 mg/dL (75-99)
[2020-10-14] MEDS: MAGNESIUM SULFATE-D5W PMX 1 GM in DEXTROSE/WATER 1 100ML.BAG IVPB SCH ×3 (12:35→15:43)
--- NOTE | 2020-10-14 13:57 | P.PN ---
<Layo Hernández - Last Filed: 10/14/20 13:31> Subjective Progress Note Date: 10/14/20 Hospital course: Patient is a 70-year-old female with a past medical history of CAD, hyperlipid emia, insulin-dependent diabetes mellitus type 2, and chronic neck and shoulder pain secondary to recurrent rotary cuff tear of left shoulder. Patient presented to the hospital this morning with a chief complaint of strokelike symptoms. Patient reports experiencing dizziness and slurred speech 3 weeks. Patient reports these symptoms have waxed and waned over the past 3 weeks and appeared to be worsening to her over the past 48 hours so she called her sister also noticed difficulty with her speech and then called her doctor's office and was instructed to come to the emergency department for further evaluation. Upon arrival to the emergency department NIH stroke scale was completed with a score of 3. A CT of her head was then completed reporting age related atrophic and chronic small vessel ischemic changes without any evidence of acute intercranial process. CTA head and neck also completed which was also negative for acute intracranial process and reporting no significant diameter reduction and internal carotid to account for patient's symptoms. CBC and BMP unremarkable with the exception of hyperglycemia with glucose of 265 and hypomagnesemia with magnesium of 1.4. Troponin less than 0.012 with EKG reporting normal sinus rhythm at 80 bpm with no noted T-wave or ST abnormalities revealing no acute ischemic changes. Patient admitted to the hospital under our services for continued medical management with consultation to neurology to rule out possible TIA/CVA. MRI brain revealing acute/subacute right frontoparietal ischemic infarct along with chronic microvascular ischemic changes. Echocardiogram revealing a normal ejection fraction of 60-65% with no significant valvular abnormalities. Physical exam: 10/14/20: Patient seen and evaluated at the bedside. She continues to have slight droop at left corner of mouth, cranial nerves II through XII remain intact. Her speech clear. She denies having any further episodes of dizziness or difficulties with her speech since admission. She continues to deny any changes in her vision or hearing, headache, numbness in her face or tongue, dysphagia, chest pain, palpitations, shortness of breath, abdominal pain, nausea, vomiting, or experiencing any new or changed numbness/weakness/tingling in extremities. General: non toxic, no distress, appears at stated age Derm: warm, dry Head: atraumatic, normocephalic, symmetric Eyes: EOMI, no lid lag, anicteric sclera Mouth: no lip lesion, mucus membranes moist. Patient has slight left-sided facial droop noted to left corner of mouth. Cardiovascular: S1S2 normal with regular rate and rhythm. No murmur, gallop, or rub. Positive posterior tibial pulses bilaterally. Cap refill less than 2 seconds. Lungs: Respirations even, regular, and unlabored on room air. Lungs clear to auscultation bilaterally. No wheezes, rhonchi, or rales present. No accessory muscle usage. Abdominal: soft, nontender to palpation, no guarding, no appreciable organomegaly Ext: no gross muscle atrophy, no edema, no contractures. Limited range of motion to left upper extremity secondary to patient's reports of recurrent rotary cuff injuries requiring surgery and pt's reports of declining most recent recommendations for surgery. Neuro: CN II-XII grossly intact, patient does have a slight droop visible at the left corner of her mouth, face otherwise symmetrical. Speech remains clear. Movement and sensation bilateral upper and lower extremities intact. Strength equal and strong 5 out of 5 to bilateral lower extremities. Unable to compare strength of upper extremities secondary to limited range of motion to left arm. Psych: Alert, oriented, appropriate affect Plan of care: Acute ischemic stroke -CT head reporting age related atrophic and chronic small vessel ischemic changes without any evidence of acute intercranial process. -CTA head and neck also completed which was also negative for acute intracranial process and reporting no significant diameter reduction and internal carotid to account for patient's symptoms. -MRI brain revealing acute/subacute right frontoparietal ischemic infarct along with chronic microvascular ischemic changes. -Echocardiogram revealing a normal ejection fraction of 60-65% with no significant valvular abnormalities. -Neurology following, appreciate further recommendations. -PT OT and speech therapy on board. -Aspirin 324 mg daily. -Lipid profile revealed elevated triglycerides at 671 and an elevated total cholesterol of 270, atorvastatin increased to 80 mg nightly. -Hemoglobin A1c 8.8%. Hypomagnesemia -Magnesium 1.6. Replaced. We will continue to monitor with repeat a.m. labs and replace abnormal electrolyte values as needed.. Type 2 insulin-dependent diabetes mellitus with hyperglycemia -Hemoglobin A1c 8.8%. -Serum glucose levels remain elevated on sliding scale, order placed for NovoLog fixed dose 3 units with each meal to be given in addition to sliding scale. Hyperlipidemia -Lipid profile revealed elevated triglycerides at 671 and an elevated total cholesterol of 270, atorvastatin increased to 80 mg nightly. CODE STATUS: Full code DVT prophylaxis: Lovenox Discussed with: Patient and RN Anticipated discharge date: Likely Tomorrow Anticipated discharge place: Home with home care consisting of continued physical therapy and speech therapy A total of 45 minutes was spent on the care of this complex patient more than 50% of the time was spent in counseling and care coordination. Objective - Vital Signs Vital signs: Vital Signs Temp 97.7 F 10/14/20 03:18 Pulse 72 10/14/20 03:18 Resp 16 10/14/20 03:18 BP 123/64 10/14/20 03:18 Pulse Ox 97 10/14/20 03:18 Intake & Output 10/13/20 10/14/20 10/14/20 18:59 06:59 18:59 Intake Total 240 240 Balance 240 240 Weight 82.554 kg 79.2 kg Intake: Oral 240 240 Other: # Voids 2 - Labs CBC & Chem 7: 10/14/20 06:38 10/14/20 06:38 Labs: Abnormal Lab Results - Last 24 Hours (Table) 10/13/20 10/13/20 10/13/20 Range/Units 10:26 11:33 11:33 Sodium (137-145) mmol/L BUN 20 H (7-17) mg/dL Glucose 265 H (74-99) mg/dL POC Glucose (mg/dL) 263 H (75-99) mg/dL Hemoglobin A1c 8.8 H (4.0-6.0) % Magnesium 1.4 L (1.6-2.3) mg/dL ALT 37 H (4-34) U/L Triglycerides (<150) mg/dL Cholesterol (<200) mg/dL 10/13/20 10/13/20 10/14/20 Range/Units 16:57 20:09 06:14 Sodium (137-145) mmol/L BUN (7-17) mg/dL Glucose (74-99) mg/dL POC Glucose (mg/dL) 283 H 230 H 200 H (75-99) mg/dL Hemoglobin A1c (4.0-6.0) % Magnesium (1.6-2.3) mg/dL ALT (4-34) U/L Triglycerides (<150) mg/dL Cholesterol (<200) mg/dL 10/14/20 10/14/20 Range/Units 06:38 06:38 Sodium 135 L (137-145) mmol/L BUN 21 H (7-17) mg/dL Glucose 181 H (74-99) mg/dL POC Glucose (mg/dL) (75-99) mg/dL Hemoglobin A1c (4.0-6.0) % Magnesium (1.6-2.3) mg/dL ALT (4-34) U/L Triglycerides 671 H (<150) mg/dL Cholesterol 270 H (<200) mg/dL <Edna Keller - Last Filed: 10/14/20 18:51> Subjective I discussed the care with Layo Hernández NP and reviewed the findings and plan as documented in the note above. I did not physically speak with or examine the patient on this date. Objective - Vital Signs Vital signs: Vital Signs Temp 97.5 F L 10/14/20 16:00 Pulse 84 10/14/20 16:00 Resp 18 10/14/20 16:00 BP 144/69 10/14/20 16:00 Pulse Ox 95 10/14/20 16:00 Intake & Output 10/13/20 10/14/20 10/14/20 18:59 06:59 18:59 Intake Total 240 1200 Balance 240 1200 Weight 82.554 kg 79.2 kg Intake: Oral 240 1200 Other: # Voids 2 1 - Labs CBC & Chem 7: 10/14/20 06:38 10/14/20 06:38 Labs: Abnormal Lab Results - Last 24 Hours (Table) 10/13/20 10/13/20 10/14/20 Range/Units 11:33 20:09 06:14 Sodium (137-145) mmol/L BUN (7-17) mg/dL Glucose (74-99) mg/dL POC Glucose (mg/dL) 230 H 200 H (75-99) mg/dL Hemoglobin A1c 8.8 H (4.0-6.0) % Triglycerides (<150) mg/dL Cholesterol (<200) mg/dL 10/14/20 10/14/20 10/14/20 Range/Units 06:38 06:38 11:58 Sodium 135 L (137-145) mmol/L BUN 21 H (7-17) mg/dL Glucose 181 H (74-99) mg/dL POC Glucose (mg/dL) 351 H (75-99) mg/dL Hemoglobin A1c (4.0-6.0) % Triglycerides 671 H (<150) mg/dL Cholesterol 270 H (<200) mg/dL 10/14/20 Range/Units 16:38 Sodium (137-145) mmol/L BUN (7-17) mg/dL Glucose (74-99) mg/dL POC Glucose (mg/dL) 259 H (75-99) mg/dL Hemoglobin A1c (4.0-6.0) % Triglycerides (<150) mg/dL Cholesterol (<200) mg/dL
--- NOTE | 2020-10-14 15:05 | P.PN ---
Subjective Progress Note Date: 10/14/20 Patient was seen for a follow-up. States she is feeling better. She is talking better. Walking is fine. She still getting slight dizziness but better than before. No vertigo. Vision is fine. No blurred vision or diplopia. Objective - Vital Signs Vital signs: Vital Signs Temp 97.5 F L 10/14/20 08:00 Pulse 90 10/14/20 14:00 Resp 18 10/14/20 14:00 BP 143/67 10/14/20 12:00 Pulse Ox 96 10/14/20 12:00 Intake & Output 10/13/20 10/14/20 10/14/20 18:59 06:59 18:59 Intake Total 240 960 Balance 240 960 Weight 82.554 kg 79.2 kg Intake: Oral 240 960 Other: # Voids 2 1 - Exam Patient is an elderly female, very pleasant, in no acute distress. Patient is alert awake oriented to time place and person. Speech and language functions are normal. Attention, concentration and fund of knowledge is adequate. On cranial examination, pupils are round and reacting to light, visual freeman still reveals neglect on the left side on double simultaneous termination otherwise her visual freeman are full, extraocular muscles are intact with no nystagmus. Face is symmetric (droop resolved), tongue protrudes to the midline. Palatal elevation and sensation normal, hearing and shoulder shrug normal, facial sensation normal. Shoulder shrug normal. On muscle strength testing, patient has weakness of the left deltoid from shoulder issue. Otherwise strength is normal in arms and legs distally and proximally. Deep tendon reflexes are symmetric and plantars withdrawal. Sensory to touch is equal with no neglect on double simultaneous stimulation. Cerebellar function showed no ataxia for [id number] testing. No dysdiadochokinesia. Tone and bulk of muscles normal. Gait normal. On general examination, there is no carotid bruit or murmur, S1-S2 audible. Abdomen is soft nontender. Chest is clear. Peripheral pulses are present. No edema. - Labs CBC & Chem 7: 10/14/20 06:38 10/14/20 06:38 Labs: Abnormal Lab Results - Last 24 Hours (Table) 10/13/20 10/13/20 10/13/20 Range/Units 11:33 16:57 20:09 Sodium (137-145) mmol/L BUN (7-17) mg/dL Glucose (74-99) mg/dL POC Glucose (mg/dL) 283 H 230 H (75-99) mg/dL Hemoglobin A1c 8.8 H (4.0-6.0) % Triglycerides (<150) mg/dL Cholesterol (<200) mg/dL 10/14/20 10/14/20 10/14/20 Range/Units 06:14 06:38 06:38 Sodium 135 L (137-145) mmol/L BUN 21 H (7-17) mg/dL Glucose 181 H (74-99) mg/dL POC Glucose (mg/dL) 200 H (75-99) mg/dL Hemoglobin A1c (4.0-6.0) % Triglycerides 671 H (<150) mg/dL Cholesterol 270 H (<200) mg/dL 10/14/20 Range/Units 11:58 Sodium (137-145) mmol/L BUN (7-17) mg/dL Glucose (74-99) mg/dL POC Glucose (mg/dL) 351 H (75-99) mg/dL Hemoglobin A1c (4.0-6.0) % Triglycerides (<150) mg/dL Cholesterol (<200) mg/dL Assessment and Plan Assessment: * Acute ischemic stroke. MRI of the brain revealed multiple small patchy areas is of ischemic infarction involving the distribution of superior branch of right MCA. Clinically, patient has minimal slurring, left facial brachial weakness, and left visual field neglect on double simultaneous stimulation. * Hypertension * Diabetes * Obesity * Recently received Gimenez virus vaccination by [employer] Plan: * Patient is doing much better today. Her speech is normal and facial droop has almost resolved. Still with left visual field neglect on double simultaneous stimulation. * MRI of the brain confirmed an acute stroke, in the distribution of right MCA in the superior division. * 2-D echo revealed small membranous ventricular septal defect. EF is 60-65%. Left-ventricular size is normal. Recommend cardiology consultation for possible PFO. ? Need for ULYSSES. * Continue dual antiplatelet medications for 3 weeks, then discontinue Plavix and continue aspirin indefinitely. * Fasting a.m. lipid panel cholesterol 270, LDL cannot be checked because high triglyceride 671. HDL is 47. Continue high-dose statins. * Hemoglobin A1c 8.8. Need to optimize control of diabetes to target A1c <7.0. * Telemetry monitoring to rule out paroxysmal A. fib. * PT OT, speech therapy.
[2020-10-14 16:43] LABS: Glucose,Whole Blood 259 mg/dL (75-99)
[2020-10-14 20:05] LABS: Glucose,Whole Blood 330 mg/dL (75-99)
[2020-10-14] MEDS ORDERED: INSULIN DETEMIR (LEVEMIR) 100 UNIT/ML SYR SQ SCH (21:00)
[2020-10-14] MEDS ORDERED: ATORVASTATIN 80 MG TAB PO SCH (21:00)
[2020-10-14] MEDS: MELATONIN 3 MG TABLET PO PRN (22:30)
[2020-10-15 06:15] LABS: Glucose,Whole Blood 234 mg/dL (75-99)
[2020-10-15] MEDS: INSULIN ASPART (NovoLOG) 100 UNIT/ML VIAL SQ SCH ×4 (06:25→12:41)
[2020-10-15 07:52] LABS: HCT 41.7 % (34.0-46.0); HGB 14.6 gm/dL (11.4-16.0); MCV 91.4 fL (80.0-100.0); Mean Platelet Volume 8.1; Platelet Count 179 k/uL (150-450); RBC 4.56 m/uL (3.80-5.40); RDW 13.3 % (11.5-15.5); WBC 7.9 k/uL (3.8-10.6)
[2020-10-15 08:07] LABS: Chloride 102 mmol/L (98-107); Glucose 196 mg/dL (74-99); Potassium 3.7 mmol/L (3.5-5.1); Sodium 136 mmol/L (137-145)
[2020-10-15 08:08] LABS: African American GFR (CKD) >90 (>60 ml/min/1.73 sqM); Anion Gap 7 mmol/L; Blood Urea Nitrogen 22 mg/dL (7-17); Calcium 9.1 mg/dL (8.4-10.2); Carbon Dioxide 27 mmol/L (22-30); Magnesium 1.7 mg/dL (1.6-2.3); Non-African American GFR(CKD) 89 (>60 ml/min/1.73 sqM)
[2020-10-15] MEDS ORDERED: ASPIRIN 81 MG PO SCH (09:00)
[2020-10-15] MEDS: CLOPIDOGREL 75 MG TAB PO SCH (09:18)
[2020-10-15] MEDS: Canagliflozin [Invokana] PO SCH (09:19)
[2020-10-15] MEDS: ENOXAPARIN 40 MG/0.4 ML SYRINGE SQ SCH (09:19)
[2020-10-15] MEDS: MAGNESIUM SULFATE-D5W PMX 1 GM in DEXTROSE/WATER 1 100ML.BAG IVPB SCH ×2 (09:24→12:42)
--- NOTE | 2020-10-15 09:58 | P.DS ---
<Layo Hernández - Last Filed: 10/15/20 12:16> Providers Expected date of discharge: 10/15/20 Hospital Course: Discharge Diagnosis: Acute ischemic stroke Hypomagnesemia Type 2 insulin-dependent diabetes mellitus with hyperglycemia Hyperlipidemia Hospital Course: Patient is a 70-year-old female with a past medical history of CAD, hyperlipidemia, insulin-dependent diabetes mellitus type 2, and chronic neck and shoulder pain secondary to recurrent rotary cuff tear of left shoulder. Patient presented to the hospital this morning with a chief complaint of strokelike symptoms. Patient reports experiencing dizziness and slurred speech 3 weeks. Patient reports these symptoms have waxed and waned over the past 3 weeks and appeared to be worsening to her over the past 48 hours so she called her sister also noticed difficulty with her speech and then called her doctor's office and was instructed to come to the emergency department for further evaluation. Upon arrival to the emergency department NIH stroke scale was completed with a score of 3. A CT of her head was then completed reporting age related atrophic and chronic small vessel ischemic changes without any evidence of acute intercranial process. CTA head and neck also completed which was also negative for acute intracranial process and reporting no significant diameter reduction and internal carotid to account for patient's symptoms. CBC and BMP unremarkable with the exception of hyperglycemia with glucose of 265 and hypomagnesemia with magnesium of 1.4. Troponin less than 0.012 with EKG reporting normal sinus rhythm at 80 bpm with no noted T-wave or ST abnormalities revealing no acute ischemic changes. Patient admitted to the hospital under our services for continued medical management with consultation to neurology to rule out possible TIA/CVA. MRI brain revealing acute/subacute right frontoparietal ischemic infarct along with chronic microvascular ischemic changes. Lipid profile revealed elevated triglycerides at 671 and an elevated total cholesterol of 270. Echocardiogram revealing a normal ejection fraction of 60-65% with no s ignificant valvular abnormalities. Patient's dysarthria has resolved and she has had no further episodes of dizziness/lightheadedness. She is medically stable for discharge. Patient being discharged home with [facility] services with PT/OT/Speech therapy. Secondary to her diagnosis of ischemic stroke, patient also being discharged home on dual antiplatelet therapy with Plavix and aspirin and her atorvastatin was increased to 80 mg nightly secondary to elevations in her lipid profile. Physical exam: 10/15/20: Patient seen and evaluated at the bedside. Facial droop continues to improve and now with minimal droop at left corner of patients mouth. Cranial nerves II through XII remain intact. Her speech remains clear. Patient is stable for discharge home at this time. She denies having any concerns or complaints at this time including headache, lightheadedness, dizziness, changes in her vision or hearing, numbness in her face or tongue, dysphagia, chest pain or palpitations, shortness of breath, dyspnea with exertion, abdominal pain, nausea, vomiting, or experiencing any numbness/weakness/tingling in extremities. Patient was educated on discharge instructions and all questions answered. General: non toxic, no distress, appears at stated age Derm: warm, dry Head: atraumatic, normocephalic, symmetric Eyes: EOMI, no lid lag, anicteric sclera Mouth: no lip lesion, mucus membranes moist. Patient has slight left-sided facial droop noted to left corner of mouth. Cardiovascular: S1S2 normal with regular rate and rhythm. No murmur, gallop, or rub. Positive posterior tibial pulses bilaterally. Cap refill less than 2 seconds. Lungs: Respirations even, regular, and unlabored on room air. Lungs clear to auscultation bilaterally. No wheezes, rhonchi, or rales present. No accessory muscle usage. Abdominal: soft, nontender to palpation, no guarding, no appreciable organomegaly Ext: no gross muscle atrophy, no edema, no contractures. Limited range of motion to left upper extremity secondary to patient's reports of recurrent rotary cuff injuries requiring surgery and pt's reports of declining most recent recommendations for surgery. Neuro: CN II-XII grossly intact, patient does have a slight droop visible at the left corner of her mouth, face otherwise symmetrical. Speech remains clear. Movement and sensation bilateral upper and lower extremities intact. Strength equal and strong 5 out of 5 to bilateral lower extremities. Unable to compare strength of upper extremities secondary to limited range of motion to left arm. Psych: Alert, oriented, appropriate affect A total of 45 minutes of time were spent preparing this complex discharge summa ry. Patient Condition at Discharge: Fair Plan - Discharge Summary Discharge Rx Participant: No New Discharge Prescriptions: New Aspirin 81 mg PO DAILY 30 Days #30 chew Atorvastatin [Lipitor] 80 mg PO HS 30 Days #30 tab Clopidogrel [Plavix] 75 mg PO DAILY 21 Days #21 tab Magnesium Oxide [Mag-Ox] 400 mg PO DAILY 30 Days #30 tablet Continue Hydrocodone/Acetaminophen [[place] 10-325] 1 tab PO Q8H PRN PRN Reason: Pain Diclofenac Sodium [Voltaren] 75 mg PO BID metFORMIN HCL 1,000 mg PO BID Meclizine [Antivert] 25 mg PO TID PRN PRN Reason: Vertigo Canagliflozin [Invokana] 300 mg PO DAILY Discontinued Atorvastatin [Lipitor] 20 mg PO HS Insulin Lispro [Admelog] See Protocol SQ ACHS PRN PRN Reason: Blood Sugar - High Discharge Medication List Hydrocodone/Acetaminophen [[place] 10-325] 1 tab PO Q8H PRN 05/01/20 [History] Diclofenac Sodium [Voltaren] 75 mg PO BID 08/30/20 [History] metFORMIN HCL 1,000 mg PO BID 08/30/20 [History] Canagliflozin [Invokana] 300 mg PO DAILY 10/13/20 [History] Meclizine [Antivert] 25 mg PO TID PRN 10/13/20 [History] Aspirin 81 mg PO DAILY 30 Days #30 chew 10/15/20 [Rx] Atorvastatin [Lipitor] 80 mg PO HS 30 Days #30 tab 10/15/20 [Rx] Clopidogrel [Plavix] 75 mg PO DAILY 21 Days #21 tab 10/15/20 [Rx] Magnesium Oxide [Mag-Ox] 400 mg PO DAILY 30 Days #30 tablet 10/15/20 [Rx] Follow up Appointment(s)/Referral(s): [facility], [NON-STAFF] - Pricilla Haddad MD [REFERRING] - 1 Week (The office will call you with appointment date and time.) Clark Lockwood MD [Primary Care Provider] - 10/19/20 1:30 pm Rubén Arellano MD [STAFF PHYSICIAN] - 1 Week (For group home monitoring and managment of your highly elevated triglyceride levels. The office will call you with appointment date and time. ) Patient Instructions/Handouts: Low Fat Diet (DC), Ischemic Stroke (DC), Ischemic Stroke (GEN), Self Care Measures After a Stroke (DC), Diabetic Hyperglycemia (DC) Activity/Diet/Wound Care/Special Instructions: Activity: As tolerated Diet: Heart healthy and carb consistent. Special Instructions: Pt would like a pneumonia vaccine prior to discharge. You are being discharged home with [facility] with PT/OT/Speech therapy after having an ischemic stroke. Because of this you're being discharged home on dual antiplatelet therapy with Plavix and aspirin. Please take these medications as directed without missing any doses. Also as we discussed your triglyceride and cholesterol levels were highly elevated and your atorvastatin was increased to 80 mg nightly. It is also important for you to eat a low fat and low carb diet free from added salts and sugars. Your blood glucose levels have been elevated and your Hgb A1c was also >8% so it is important for you to take your medications as directed and monitor your blood glucose levels daily and document in a journal to bring with you to your next doctors appointment as you may need further adjustment and/or additional medications added to your daily regimen. Thank you for giving us the opportunity to participate in your care, it was a pleasure having you for our patient!! Discharge Disposition: HOME WITH HOME HEALTH SERVICES <Edna Keller - Last Filed: 10/15/20 15:53> Providers Date of admission: 10/13/20 15:17 Attending physician: Edna Keller DO Consults: 10/13/20 14:23 Consult Physician Routine Consulting Provider: Tesfaye Villavicencio Consult Reason/Comments: dysarthria, dizziness Do you want consulting provider notified?: Yes Primary care physician: Clark Lockwood MD Hospital Course: Patient seen and examined independently. Patient was also seen by Layo Hernández NP and case was discussed. I am in agreement with subjective, physical exam, assessment and plan as written above and amended below. Patient is feeling better. She states that her speech is slowly improving. She reports that she feels comfortable going home. No additional questions. General: non toxic, no distress, appears at stated age Derm: warm, dry Head: atraumatic, normocephalic, symmetric Eyes: EOMI, no lid lag, anicteric sclera Neuro: CN II-XI grossly intact, no focal neuro deficits Psych: Alert, oriented, appropriate affect
[2020-10-15 11:40] LABS: Glucose,Whole Blood 254 mg/dL (75-99)
[2020-10-15 15:22] VITALS: BP 138/72; PULSE 90; RESP 18; TEMP 98.4
--- NOTE | 2020-10-18 16:06 | P.PN ---
Subjective Progress Note Date: 10/15/20 Patient was seen for a follow-up. States she is feeling better. She is talking better. Walking is fine. Even her visual freeman have improved. Patient is going home today. No vertigo. Vision is fine. No blurred vision or diplopia. Objective - Vital Signs Vital signs: Vital Signs Temp 98.4 F 10/15/20 08:00 Pulse 90 10/15/20 14:00 Resp 18 10/15/20 14:00 BP 138/72 10/15/20 08:00 Pulse Ox 97 10/15/20 08:00 Intake & Output 10/14/20 10/15/20 10/15/20 18:59 06:59 18:59 Intake Total 1200 720 Balance 1200 720 Weight 79.2 kg Intake: Oral 1200 720 Other: # Voids 1 1 1 - Exam Patient is an elderly female, very pleasant, in no acute distress. Patient is alert awake oriented to time place and person. Speech and language functions are normal. Attention, concentration and fund of knowledge is adequate. On cranial examination, pupils are round and reacting to light, visual freeman are full, with no neglect on double simultaneous stimulation. This is improvement as compared to yesterday. Her extraocular muscles are intact with no nystagmus. Face is symmetric (droop almost resolved except for the left corner minimal droop), tongue protrudes to the midline. Palatal elevation and sensation normal, hearing and shoulder shrug normal, facial sensation normal. Shoulder shrug normal. On muscle strength testing, patient has weakness of the left deltoid from shoulder issue. Otherwise strength is normal in arms and legs distally and proximally. Deep tendon reflexes are symmetric and plantars withdrawal. Sensory to touch is equal with no neglect on double simultaneous stimulation. Cerebellar function showed no ataxia for ecacpx-bu-[id number] testing. No dysdiadochokinesia. Tone and bulk of muscles normal. Gait normal. On general examination, there is no carotid bruit or murmur, S1-S2 audible. Abdomen is soft nontender. Chest is clear. Peripheral pulses are present. No edema. - Labs CBC & Chem 7: 10/15/20 06:37 10/15/20 06:37 Labs: Abnormal Lab Results - Last 24 Hours (Table) 10/14/20 10/14/20 10/15/20 Range/Units 16:38 20:04 06:14 Sodium (137-145) mmol/L BUN (7-17) mg/dL Glucose (74-99) mg/dL POC Glucose (mg/dL) 259 H 330 H 234 H (75-99) mg/dL 10/15/20 10/15/20 Range/Units 06:37 11:38 Sodium 136 L (137-145) mmol/L BUN 22 H (7-17) mg/dL Glucose 196 H (74-99) mg/dL POC Glucose (mg/dL) 254 H (75-99) mg/dL Assessment and Plan Assessment: * Acute ischemic stroke. MRI of the brain revealed multiple small patchy areas is of ischemic infarction involving the distribution of superior branch of right MCA. Clinically, patient has minimal slurring, left facial brachial weakness, and left visual field neglect on double simultaneous stimulation. All of the symptoms have now resolved as per examination. * Hypertension * Diabetes * Obesity * Recently received Gimenez virus vaccination by [employer] Plan: * Patient is doing much better today. Her speech is normal and facial droop has almost resolved. Left visual field neglect has now resolved. * MRI of the brain confirmed an acute stroke, in the distribution of right MCA in the superior division. * Discussed with Dr. Campbell, and 2-D echo reviewed and the report was changed with no evidence of small membranous ventricular septal defect. EF is 60-65%. Left-ventricular size is normal. Suggest an event monitor or loop recorder to rule out paroxysmal A. fib. * Continue dual antiplatelet medications for 3 weeks, then discontinue Plavix and continue aspirin indefinitely. * Fasting a.m. lipid panel cholesterol 270, LDL cannot be checked because high triglyceride 671. HDL is 47. Continue high-dose statins. * Hemoglobin A1c 8.8. Need to optimize control of diabetes to target A1c <7.0. * Telemetry monitoring so far showing normal sinus rhythm. No A. fib. * PT OT, speech therapy.
== END 2020-10-15 15:56 | disposition home health service (06) | DRG 66 ==
LOC: EC 10:19 → 3SCARD 15:17 → 3NCARDOBS 21:32
PROVIDERS: ADMIT Internal Medicine; ATTEND Internal Medicine
DX: I63.511 Cerebral infarction due to unspecified occlusion or stenosis of right middle cerebral artery (principal); E11.40 Type 2 diabetes mellitus with diabetic neuropathy, unspecified; E11.65 Type 2 diabetes mellitus with hyperglycemia; Z79.4 Long term (current) use of insulin; Z20.822 Contact with and (suspected) exposure to COVID-19; R29.703 NIHSS score 3; R29.810 Facial weakness; R47.81 Slurred speech; R47.1 Dysarthria and anarthria; H53.9 Unspecified visual disturbance; E78.5 Hyperlipidemia, unspecified; E89.0 Postprocedural hypothyroidism; I25.10 Atherosclerotic heart disease of native coronary artery without angina pectoris; E83.42 Hypomagnesemia; E78.1 Pure hyperglyceridemia; I10 Essential (primary) hypertension; G89.29 Other chronic pain; M54.2 Cervicalgia; M25.519 Pain in unspecified shoulder; K21.9 Gastro-esophageal reflux disease without esophagitis; M51.36 Other intervertebral disc degeneration, lumbar region; M47.816 Spondylosis without myelopathy or radiculopathy, lumbar region; M19.90 Unspecified osteoarthritis, unspecified site; E66.9 Obesity, unspecified; Z68.36 Body mass index [BMI] 36.0-36.9, adult; Z79.899 Other long term (current) drug therapy; Z98.891 History of uterine scar from previous surgery; Z87.39 Personal history of other diseases of the musculoskeletal system and connective tissue; Z98.890 Other specified postprocedural states; Z88.8 Allergy status to other drugs, medicaments and biological substances; Z80.8 Family history of malignant neoplasm of other organs or systems
CPT/HCPCS: 36415; 70450; 70496; 70498; 70551; 71045; 80048; 80053; 80061; 83036; 83735; 84484; 85025; 85027; 85610; 85730; 87636; 93005; 93306; 99285

== ENCOUNTER 2020-12-07 09:36 | Day surgery (SDC) | payer MEDICARE ==
[2020-12-04 10:07] VITALS: BMI 35.9
[2020-12-07 10:08] VITALS: TEMP 98
[2020-12-07 10:08] LABS: Glucose,Whole Blood 249 mg/dL (75-99)
[2020-12-07] MEDS ORDERED: SODIUM CHLORIDE 0.9% 500 ML 500 ML IV ONE (10:08)
[2020-12-07] MEDS ORDERED: fentaNYL (PF) 50 MCG/ML 2 ML AMP ONE (10:28)
[2020-12-07] MEDS ORDERED: BENZOCAINE SPRAY 1 CAN MUCOUS MEM ONE (10:40)
[2020-12-07] MEDS ORDERED: fentaNYL (PF) 50 MCG/ML 2 ML AMP IV ONE (10:40)
[2020-12-07] MEDS ORDERED: MIDAZOLAM 2 MG/2 ML VIAL IV ONE (10:40)
[2020-12-07 10:53] VITALS: RESP 16
[2020-12-07] MEDS ORDERED: SODIUM CHLORIDE 0.9% 1,000 ML IV SCH (11:00)
--- NOTE | 2020-12-07 11:08 | P.TEE ---
Indications for Procedure(s): Rule out cardiac source of emboli. History of CVA Date of Procedure: 12/07/20 Preoperative Diagnosis: History of CVA Postoperative Diagnosis: Presence of small PFO. Moderate mitral regurgitation Description of Procedure(s): INDICATION: History of CVA and diabetes. Rule out Cardec source of emboli CONSENT: . This is a 70-year-old female who apparently had a CVA recently with multiple risk factors. Patient was advised to have ULYSSES to rule out any Cardec source of emboli. Informed verbal consent was obtained from the patient PROCEDURE: . Patient was brought to the lab in a fasting state. She was prepped and draped in the usual fashion. The throat was sprayed with Hurricaine. A lubricated Omni probe was introduced in the oropharynx and was advanced into the esophagus without difficulty. Patient was given IV Versed 2 mg and fentanyl 50 g. Multiple views were obtained both from the esophagus and stomach. The patient tolerated the procedure well. Color, pulsed and continuous Doppler studies were done. Saline contrast bubble injections were done. No immediate complications FINDINGS: . The aortic valve is tricuspid and function normally. Mitral valve showed about 2+ mitral regurgitation which is central. Tricuspid valve appeared within normal. The left atrial appendage is free of any clot. The probe patent and the pulmonary veins is normal. The interatrial septum appeared to be intact without any spontaneous shunt. However injection of the bubbles showed crossing of the bubbles across the interatrial septum suggestive of small presence of small PFO. Chamber sizes are normal. Left ankle function is normal. Aorta showed minimal thickening of the intima without any significant plaque IMPRESSION: #1. Appears presence of small PFO #2. 2+ mitral regurgitation #3. No clot in left atrial appendage. #4. Left ankle function is normal. #5. Aortic valve is normal. #6 chamber sizes are normal PLAN: . Continue current medical therapy. The patient has recurrence of symptoms, may consider closing PFO
[2020-12-07 12:26] VITALS: BP 120/68; PULSE 58
[2020-12-07] MEDS ORDERED: INSULIN ASPART (NovoLOG) 100 UNIT/ML VIAL SQ SCH (12:30)
== END 2020-12-07 12:24 | disposition home or self-care (01) ==
LOC: CATHCVL 09:36
PROVIDERS: ATTEND Internal Medicine Cardiovascular Disease
DX: I34.0 Nonrheumatic mitral (valve) insufficiency (principal); Q21.1 Atrial septal defect; Z86.73 Personal history of transient ischemic attack (TIA), and cerebral infarction without residual deficits; E78.00 Pure hypercholesterolemia, unspecified; E11.9 Type 2 diabetes mellitus without complications; E78.5 Hyperlipidemia, unspecified; Z20.822 Contact with and (suspected) exposure to COVID-19; Z79.02 Long term (current) use of antithrombotics/antiplatelets; Z79.82 Long term (current) use of aspirin; Z79.899 Other long term (current) drug therapy; Z79.4 Long term (current) use of insulin
CPT/HCPCS: 93312; 93320; 93325; 87635; J2250; J3010

== ENCOUNTER 2023-05-02 01:07 | Emergency (ER) | payer MEDICARE ==
[2023-05-02 01:31] VITALS: BP 136/64; PULSE 84; RESP 18; TEMP 97.9
[2023-05-02] MEDS ORDERED: HYDROcodone/APAP 5-325MG 1 EACH TAB PO STA (01:51)
--- NOTE | 2023-05-02 02:03 | ED ---
Extremity Problem HPI - General Chief complaint: Extremity Problem,Nontraumatic Stated complaint: Bilateral Leg Pain Time Seen by Provider: 05/02/23 01:12 Source: patient, EMS Mode of arrival: EMS Limitations: no limitations - History of Present Illness Initial comments: 72-year-old female who presents the ER today with complaint of pain and spasms in her bilateral legs. Patient reports that she's been on gabapentin for peripheral neuropathy for a long period of time, patient states that she recently ran out of her gabapentin and was without it for 5 days. She saw her primary care today and got a new prescription she took one dose but reports that she has pain and spasming in her legs which is keeping her from sleeping so she called in and the spring of the hospital for pain management. Patient reports when she's had pain like this in the past [place] his help she does not have any [place] at home. She denies any recent injuries or falls. She's had no trauma to her back or legs. She has chronic back pain and she has previously been referred to the pain management clinic but was unable to get her appointment due to transportation issues. Her back pain is unchanged today. - Related Data Home Medications Medication Instructions Recorded Confirmed Hydrocodone/Acetaminophen [[place] 1 tab PO HS 05/01/20 12/07/20 10-325] Diclofenac Sodium [Voltaren] 75 mg PO BID 08/30/20 12/07/20 metFORMIN HCL [Glucophage] 1,000 mg PO BID 08/30/20 12/07/20 Canagliflozin [Invokana] 300 mg PO DAILY 10/13/20 12/07/20 Insulin Aspart [NovoLOG] 6 - 10 units SQ TID PRN 12/04/20 12/07/20 Losartan [Cozaar] 25 mg PO DAILY 12/07/20 12/07/20 Metoprolol Tartrate [Lopressor] 25 mg PO BID 12/07/20 12/07/20 Previous Rx's Medication Instructions Recorded Aspirin 81 mg PO DAILY 30 Days #30 chew 10/15/20 Atorvastatin [Lipitor] 80 mg PO HS 30 Days #30 tab 10/15/20 Clopidogrel [Plavix] 75 mg PO DAILY 21 Days #21 tab 10/15/20 Magnesium Oxide [Mag-Ox] 400 mg PO DAILY 30 Days #30 tablet 10/15/20 Allergies Allergy/AdvReac Type Severity Reaction Status Date / Time acetaminophen Allergy Nightmares Verified 12/04/20 09:44 [From Darvocet-N] propoxyphene Allergy Nightmares Verified 12/04/20 09:44 [From Darvocet-N] methylprednisolone AdvReac MUSCLE Verified 12/04/20 09:43 SPASMS Review of Systems ROS Statement: Those systems with pertinent positive or pertinent negative responses have been documented in the HPI. ROS Other: All systems not noted in ROS Statement are negative. Past Medical History Past Medical History: CVA/TIA, Diabetes Mellitus, GERD/Reflux, Hyperlipidemia, Hypertension, Musculoskeletal Disorder, Osteoarthritis (OA) Additional Past Medical History / Comment(s): Pt states she got the [employer] Covid Vaccine at the end of September. States "immediately got all the Covid symptoms and very dizzy, then got real sick, slurring speech, had blood clot in my neck and had a stroke" States "I still have no sense of taste, have body aches and fatique". Severe neuropathy in bilateral feet, chronic neck, left shoulder and lumbar back pain. Lumbar DDD/Spondylosis, Vertigo. History of Any Multi-Drug Resistant Organisms: None Reported Past Surgical History: Section Additional Past Surgical History / Comment(s): Bilateral shoulder surgery for rotator cuff, bilateral carpal tunnel release, bilateral knee arthroscopies, thyroid biopsy, Section X2. Past Anesthesia/Blood Transfusion Reactions: No Reported Reaction, Motion Sickness Past Psychological History: No Psychological Hx Reported Smoking Status: Never smoker Past Alcohol Use History: None Reported Past Drug Use History: None Reported - Past Family History Sister(s) Family Medical History: Cancer Brother(s) Family Medical History: Cancer General Exam - General Exam Comments Initial Comments: Physical Exam GENERAL: Patient is well-developed and well-nourished. Patient is nontoxic and well-hydrated and is in no distress. HENT: Normocephalic, Atraumatic. EYES: PERRL, EOMI PULMONARY: Unlabored respirations. CARDIOVASCULAR: RRR Warm and well perfused extremities ABDOMEN: Non-distended SKIN: No rashes or bruising : Deferred NEUROLOGIC: Alert and oriented Normal speech MUSCULOSKELETAL: Moving all extremities with no apparent injury No pedal edema Tenderness to light touch on bilateral lower extremities PSYCHIATRIC: No SI/HI Limitations: no limitations Course Vital Signs 05/02/23 01:13 Temperature 97.9 F Pulse Rate 84 Respiratory 18 Rate Blood Pressure 136/64 O2 Sat by Pulse 96 Oximetry Medical Decision Making - Medical Decision Making Was pt. sent in by a medical professional or institution (, [facility], FIELD HAND, urgent care, hospital, or senior care...) When possible be specific @ -No Did you speak to anyone other than the patient for history (EMS, parent, family, police, friend...)? What history was obtained from this source @ -No Did you review nursing and triage notes (agree or disagree)? Why? @ -I reviewed and agree with nursing and triage notes Were old charts reviewed (outside hosp., previous admission, EMS record, old E KG, old radiological studies, urgent care reports/EKG's, senior care records)? Report findings @ -Previous medical record reviewed Differential Diagnosis (chest pain, altered mental status, abdominal pain women, abdominal pain men, vaginal bleeding, weakness, fever, dyspnea, syncope, headache, dizziness, GI bleed, back pain, seizure, CVA, palpatations, mental health, musculoskeletal)? @ -Differential Musculoskeletal Muscular strain, contusion, ligament sprain, fracture, arthritis, septic arthritis, bursitis, cellulitis, muscle spasm, nerve compression, DVT, arterial occlusion, herpes zoster, electrolyte abnormality, tumor.... This is not meant to be in all inclusive list EKG interpreted by me (3pts min.). @ -As above X-rays interpreted by me (1pt min.). @ -None done CT interpreted by me (1pt min.). @ -None done U/S interpreted by me (1pt. min.). @ -None done What testing was considered but not performed or refused? (CT, X-rays, U/S, labs)? Why? @ -None What meds were considered but not given or refused? Why? @ -None Did you discuss the management of the patient with other professionals (professionals i.e. , [facility]TIS, FIELD HAND, lab, RT, psych nurse, social sciences lecturer, optical lab technician, teacher, operations officer afloat, special education case manager)? Give summary @ -No Was smoking cessation discussed for >3mins.? @ -No Was critical care preformed (if so, how long)? @ -No Were there social determinants of health that impacted care today? How? (Homelessness, low income, unemployed, alcoholism, drug addiction, transportation, low edu. Level, literacy, decrease access to med. care, chcf, rehab)? @ -Transportation, lack of access to medical care Was there de-escalation of care discussed even if they declined (Discuss DNR or withdrawal of care, Hospice)? DNR status @ -No What co-morbidities impacted this encounter? (DM, HTN, Smoking, COPD, CAD, Cancer, CVA, ARF, Chemo, Hep., AIDS, mental health diagnosis, sleep apnea, morbid obesity)? @ - Diabetes, cardiovascular disease, previous CVA Was patient admitted / discharged? Hospital course, mention meds given and route, prescriptions, significant lab abnormalities, going to OR and other pertinent info. @ -Discharge The patient was seen and evaluated, patient with exacerbation of her peripheral neuropathy due to lack of access to medications. Patient was treated with by mouth [place] and will be discharged home. Undiagnosed new problem with uncertain prognosis? @ -No Drug Therapy requiring intensive monitoring for toxicity (Heparin, Nitro, Insulin, Cardizem)? @ -No Were any procedures done? @ -No Diagnosis/symptom? @ -Peripheral neuropathy Acute, or Chronic, or Acute on Chronic? @ -Chronic Uncomplicated (without systemic symptoms) or Complicated (systemic symptoms)? @ -default Side effects of treatment? @ -No Exacerbation, Progression, or Severe Exacerbation? @ -Exacerbation Poses a threat to life or bodily function? How? (Chest pain, [place], [place], pneumonia, PE, COPD, DKA, ARF, appy, cholecystitis, CVA, Diverticulitis, Homicidal, Suicidal, threat to staff... and all critical care pts) @ -No Disposition Clinical Impression: Diabetic neuropathy Disposition: HOME SELF-CARE Condition: Stable Instructions (If sedation given, give patient instructions): Diabetic Peripheral Neuropathy (ED) Is patient prescribed a controlled substance at d/c from ED?: No Referrals: Moe Crawford MD [Primary Care Provider] - 1-2 days
== END 2023-05-02 02:48 | disposition home or self-care (01) ==
LOC: EC 01:07
DX: E11.42 Type 2 diabetes mellitus with diabetic polyneuropathy (principal); I10 Essential (primary) hypertension; Z79.84 Long term (current) use of oral hypoglycemic drugs; Z79.4 Long term (current) use of insulin; Z79.899 Other long term (current) drug therapy; Z88.8 Allergy status to other drugs, medicaments and biological substances
CPT/HCPCS: 99284

== ENCOUNTER 2023-12-29 20:03 | Emergency (ER) | payer MEDICARE ==
[2023-12-29 20:13] VITALS: TEMP 98
--- NOTE | 2023-12-29 20:40 | ED ---
Fall HPI - General Chief Complaint: Fall Stated Complaint: Fall Time Seen by Provider: 12/29/23 20:20 Source: patient, EMS, RN notes reviewed Mode of arrival: EMS - History of Present Illness Initial Comments: This is a 73-year-old female presents emergency department via EMS for chief complaint of fall. Patient states that she was walking up stairs while outside and slipped falling backwards and hitting the back of her head. Patient denies loss of consciousness at the time of the fall. Patient is on blood thinners for history of stroke. Currently patient is denying chest pain, chest pressure, dizziness, lightheadedness. She is endorsing pain at the site of injury. Patient did arrive in a c-collar via EMS. Patient denies back pain, upper or lower extremity pain from the fall. No other acute complaints at this time. - Related Data Home Medications Medication Instructions Recorded Confirmed Hydrocodone/Acetaminophen [[place] 1 tab PO HS 05/01/20 12/07/20 10-325] Diclofenac Sodium [Voltaren] 75 mg PO BID 08/30/20 12/07/20 metFORMIN HCL [Glucophage] 1,000 mg PO BID 08/30/20 12/07/20 Canagliflozin [Invokana] 300 mg PO DAILY 10/13/20 12/07/20 Insulin Aspart [NovoLOG] 6 - 10 units SQ TID PRN 12/04/20 12/07/20 Losartan [Cozaar] 25 mg PO DAILY 12/07/20 12/07/20 Metoprolol Tartrate [Lopressor] 25 mg PO BID 12/07/20 12/07/20 Previous Rx's Medication Instructions Recorded Aspirin 81 mg PO DAILY 30 Days #30 chew 10/15/20 Atorvastatin [Lipitor] 80 mg PO HS 30 Days #30 tab 10/15/20 Clopidogrel [Plavix] 75 mg PO DAILY 21 Days #21 tab 10/15/20 Magnesium Oxide [Mag-Ox] 400 mg PO DAILY 30 Days #30 tablet 10/15/20 Allergies Allergy/AdvReac Type Severity Reaction Status Date / Time acetaminophen Allergy Nightmares Verified 12/29/23 20:13 [From Darvocet-N] propoxyphene Allergy Nightmares Verified 12/29/23 20:13 [From Darvocet-N] methylprednisolone AdvReac MUSCLE Verified 12/29/23 20:13 SPASMS Review of Systems ROS Statement: Those systems with pertinent positive or pertinent negative responses have been documented in the HPI. ROS Other: All systems not noted in ROS Statement are negative. Past Medical History Past Medical History: CVA/TIA, Diabetes Mellitus, GERD/Reflux, Hyperlipidemia, Hypertension, Musculoskeletal Disorder, Osteoarthritis (OA) Additional Past Medical History / Comment(s): Pt states she got the [employer] Covid Vaccine at the end of September. States "immediately got all the Covid symptoms and very dizzy, then got real sick, slurring speech, had blood clot in my neck and had a stroke" States "I still have no sense of taste, have body aches and fatique". Severe neuropathy in bilateral feet, chronic neck, left shoulder and lumbar back pain. Lumbar DDD/Spondylosis, Vertigo. History of Any Multi-Drug Resistant Organisms: None Reported Past Surgical History: Section Additional Past Surgical History / Comment(s): Bilateral shoulder surgery for rotator cuff, bilateral carpal tunnel release, bilateral knee arthroscopies, thyroid biopsy, Section X2. Past Anesthesia/Blood Transfusion Reactions: No Reported Reaction, Motion Sickness Past Psychological History: No Psychological Hx Reported Smoking Status: Never smoker Past Alcohol Use History: None Reported Past Drug Use History: None Reported - Past Family History Sister(s) Family Medical History: Cancer Brother(s) Family Medical History: Cancer General Exam General appearance: alert, in no apparent distress Head exam: Present: atraumatic, normocephalic, normal inspection, other (posterior hematoma) Eye exam: Present: normal appearance, PERRL, EOMI. Absent: scleral icterus, conjunctival injection, periorbital swelling ENT exam: Present: normal exam, mucous membranes moist Neck exam: Present: normal inspection. Absent: tenderness, meningismus, lymphadenopathy Respiratory exam: Present: normal lung sounds bilaterally. Absent: respiratory distress, wheezes, rales, rhonchi, stridor Cardiovascular Exam: Present: regular rate, normal rhythm, normal heart sounds. Absent: systolic murmur, diastolic murmur, rubs, gallop, clicks GI/Abdominal exam: Present: soft, normal bowel sounds. Absent: distended, tenderness, guarding, rebound, rigid Extremities exam: Present: normal inspection, full ROM, normal capillary refill. Absent: tenderness, pedal edema, joint swelling, calf tenderness Back exam: Present: normal inspection Neurological exam: Present: alert, oriented X3, CN II-XII intact Psychiatric exam: Present: normal affect, normal mood Skin exam: Present: warm, dry, intact, normal color. Absent: rash Course Vital Signs 12/29/23 12/29/23 20:11 21:54 Temperature 98.0 F Pulse Rate 77 72 Respiratory 16 18 Rate Blood Pressure 182/68 190/70 O2 Sat by Pulse 97 99 Oximetry Medical Decision Making - Medical Decision Making Was pt. sent in by a medical professional or institution (, PA, RADIO BOARD OPERATOR ANNOUNCER, urgent care, hospital, or custodial...) When possible be specific @ -No Did you speak to anyone other than the patient for history (EMS, parent, family, police, friend...)? What history was obtained from this source @ -spoke to the patient's family at bedside and states that the patient has a history of chronic back pain. Did you review nursing and triage notes (agree or disagree)? Why? @ -I reviewed and agree with nursing and triage notes Were old charts reviewed (outside hosp., previous admission, EMS record, old EKG, old radiological studies, urgent care reports/EKG's, custodial records)? Report findings @ -No old charts were reviewed Differential Diagnosis (chest pain, altered mental status, abdominal pain women, abdominal pain men, vaginal bleeding, weakness, fever, dyspnea, syncope, headache, dizziness, GI bleed, back pain, seizure, CVA, palpatations, mental health, musculoskeletal)? @ -Fall, contusion, intracranial hemorrhage, fracture, this list is not all inclusive. EKG interpreted by me (3pts min.). @ -None X-rays interpreted by me (1pt min.). @ -None done CT interpreted by me (1pt min.). @ -T imaging of the brain and C-spine without contrast reveals no acute intracranial abnormality, no evidence of cervical spine fracture or dislocation. U/S interpreted by me (1pt. min.). @ -None done What testing was considered but not performed or refused? (CT, X-rays, U/S, labs)? Why? @ -None What meds were considered but not given or refused? Why? @ -None Did you discuss the management of the patient with other professionals (professionals i.e. , PA, RADIO BOARD OPERATOR ANNOUNCER, lab, RT, psych nurse, social sciences department chair, broodmare barn groom, teacher, child support case officer, showcase maker)? Give summary @ -No Was smoking cessation discussed for >3mins.? @ -No Was critical care preformed (if so, how long)? @ -No Were there social determinants of health that impacted care today? How? (Homelessness, low income, unemployed, alcoholism, drug addiction, transportation, low edu. Level, literacy, decrease access to med. care, chcf, rehab)? @ -No Was there de-escalation of care discussed even if they declined (Discuss DNR or withdrawal of care, Hospice)? DNR status @ -No What co-morbidities impacted this encounter? (DM, HTN, Smoking, COPD, CAD, Cancer, CVA, ARF, Chemo, Hep., AIDS, mental health diagnosis, sleep apnea, morbid obesity)? @ -None Was patient admitted / discharged? Hospital course, mention meds given and route, prescriptions, significant lab abnormalities, going to OR and other pertinent info. @ -Charge. 73-year-old female with a fall. Patient arrives via EMS with a c- collar in place. Patient is neurovascularly intact on examination. She will be evaluated via CT of the brain and C-spine, which reveals no acute evidence of intracranial or cervical abnormality. After removal of c-collar patient's neck strength and pain was assessed. Patient is denies symptoms of headache, neck pain. Again, neurological exam no acute findings. Patient provided with an ice pack and instructed to use Tylenol at home for pain relief as needed. All questions answered at bedside and strict return parameters discussed with the patient she is verbalized understanding. Case discussed with Dr. Hatfield Undiagnosed new problem with uncertain prognosis? @ -No Drug Therapy requiring intensive monitoring for toxicity (Heparin, Nitro, Insulin, Cardizem)? @ -No Were any procedures done? @ -No Diagnosis/symptom? @ -Fall, scalp hematoma Acute, or Chronic, or Acute on Chronic? @ -acute Uncomplicated (without systemic symptoms) or Complicated (systemic symptoms)? @ -Uncomplicated Side effects of treatment? @ -No Exacerbation, Progression, or Severe Exacerbation? @ -No Poses a threat to life or bodily function? How? (Chest pain, [place], [place], pneumonia, PE, COPD, DKA, ARF, appy, cholecystitis, CVA, Diverticulitis, Homicidal, Suicidal, threat to staff... and all critical care pts) @ -No Disposition Clinical Impression: Fall, Contusion, Head injury Disposition: HOME SELF-CARE Condition: Good Instructions (If sedation given, give patient instructions): Fall Prevention for Older Adults (ED) Additional Instructions: Return the emergency department if your symptoms worsen not proved. Continue to ice the affected area. Recommend that you follow-up with your primary care provider in 1 to 3 days for further evaluation. Is patient prescribed a controlled substance at d/c from ED?: No Referrals: Moe Crawford MD [Primary Care Provider] - 1-2 days Time of Disposition: 21:23
--- NOTE | 2023-12-29 21:06 | CT ---
EXAMINATION TYPE: CT brain cspine wo con CT DLP: 1522.8 mGycm, Automated exposure control for dose reduction was used. DATE OF EXAM: 12/29/2023 8:58 PM COMPARISON: 10/13/2020. CLINICAL INDICATION:Female, 73 years old with history of fall; Fall down 4 or 5 stairs. No LOC. TECHNIQUE: Brain: Multiple axial CT images of the brain were obtained without IV contrast. Cspine: Axial CT images from the skull base to the inferior aspect of T2 we obtained without intraven ous contrast. Coronal and sagittal reformatted images were also reviewed. . FINDINGS: Brain: Extra-axial spaces: No abnormal extra-axial fluid collections. Ventricular system: Within normal limits Cerebral parenchyma: New from 2020. Encephalomalacia the right posterior frontal/parietal region. No acute intraparenchymal hemorrhage or mass effect. The german-white junction is well differentiated. Cerebellum: Unremarkable. Mass effect: No evidence of midline shift. Intracranial vasculature: Atherosclerotic calcifications of the intracranial vessels. Soft tissues: Normal. Calvarium/osseous structures: No depressed skull fracture. Paranasal sinuses and mastoid air cells: Clear. Visualized orbits: Bilateral aphakia Cervical spine: Fracture: None. Osseous structures: Multilevel degenerative disc disease changes with endplate spurring and disc oste ophyte complex's. Vertebral alignment: Within normal limits. Spinal canal/Neural Foramina: No evidence of significant spinal canal narrowing. No evidence for sign ificant neural foraminal stenosis. Neck soft tissues: Prevertebral soft tissues are within normal limits. Other: The airway is patent. The lung apices are clear. IMPRESSION: 1. No acute intracranial process. 2. 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 3. No evidence of cervical spine fracture. 4. Moderate multilevel degenerative disc disease.
[2023-12-29 21:56] VITALS: BP 190/70; PULSE 72; RESP 18
== END 2023-12-29 21:56 | disposition home or self-care (01) ==
LOC: EC 20:03
DX: S00.93XA Contusion of unspecified part of head, initial encounter (principal); Z88.8 Allergy status to other drugs, medicaments and biological substances; W01.0XXA Fall on same level from slipping, tripping and stumbling without subsequent striking against object, initial encounter
CPT/HCPCS: 70450; 72125; 99284

== ENCOUNTER 2024-03-13 16:28 | Emergency (ER) | payer MEDICARE ==
[2024-03-13 16:38] VITALS: TEMP 98.2
--- NOTE | 2024-03-13 17:11 | ED ---
Fall HPI - General Chief Complaint: Fall Stated Complaint: fall/bloody nose Time Seen by Provider: 03/13/24 16:38 Source: patient, EMS, RN notes reviewed, old records reviewed Mode of arrival: EMS Limitations: no limitations - History of Present Illness Initial Comments: This is a 73-year-old female to the ER today. This patient is presenting to us today for evaluation regards to fall. Fall from standing a trip and fall where she landed on her face she attempted to cut herself with her hands was unsuccessful had some minimal bleeding from the nose with significant swelling around her left eye. Patient is on Plavix MD Complaint: fall -: hour(s) When Fall Occurred: 1 hour [employer] Fall Witnessed: yes, by family Place Fall Occurred: home Loss of Consciousness: none Prolonged Down Time?: no Symptoms Prior to Fall: none Location: head, face Severity: moderate Severity scale (1-10): 5 Quality: stabbing Context: tripped/slipped Associated Symptoms: denies - Related Data Home Medications Medication Instructions Recorded Confirmed Diclofenac Sodium [Voltaren] 75 mg PO BID 08/30/20 03/13/24 metFORMIN HCL [Glucophage] 1,000 mg PO BID 08/30/20 03/13/24 Insulin Aspart [NovoLOG] 10 units SQ DAILY PRN 12/04/20 03/13/24 DULoxetine HCL [Cymbalta] 20 mg PO HS 03/13/24 03/13/24 Gabapentin [Neurontin] 300 mg PO BID 03/13/24 03/13/24 Losartan [Cozaar] 50 mg PO DAILY 03/13/24 03/13/24 Omeprazole [PriLOSEC] 40 mg PO DAILY 03/13/24 03/13/24 Pioglitazone [Actos] 15 mg PO DAILY 03/13/24 03/13/24 Semaglutide [Ozempic] 0.25 mg SQ WE 03/13/24 03/13/24 Previous Rx's Medication Instructions Recorded Clopidogrel [Plavix] 75 mg PO DAILY 21 Days #21 tab 10/15/20 Magnesium Oxide [Mag-Ox] 400 mg PO DAILY 30 Days #30 tablet 10/15/20 Allergies Allergy/AdvReac Type Severity Reaction Status Date / Time acetaminophen Allergy Nightmares Verified 03/13/24 17:36 [From Darvocet-N] propoxyphene Allergy Nightmares Verified 03/13/24 17:36 [From Tricia-N] methylprednisolone AdvReac MUSCLE Verified 03/13/24 17:36 SPASMS Review of Systems ROS Statement: Those systems with pertinent positive or pertinent negative responses have been documented in the HPI. ROS Other: All systems not noted in ROS Statement are negative. Past Medical History Past Medical History: CVA/TIA, Diabetes Mellitus, GERD/Reflux, Hyperlipidemia, Hypertension, Musculoskeletal Disorder, Osteoarthritis (OA) Additional Past Medical History / Comment(s): Pt states she got the [employer] Covid Vaccine at the end of September. States "immediately got all the Covid symptoms and very dizzy, then got real sick, slurring speech, had blood clot in my neck and had a stroke" States "I still have no sense of taste, have body aches and fatique". Severe neuropathy in bilateral feet, chronic neck, left shoulder and lumbar back pain. Lumbar DDD/Spondylosis, Vertigo. History of Any Multi-Drug Resistant Organisms: None Reported Past Surgical History: Section Additional Past Surgical History / Comment(s): Bilateral shoulder surgery for rotator cuff, bilateral carpal tunnel release, bilateral knee arthroscopies, thyroid biopsy, Section X2. Past Anesthesia/Blood Transfusion Reactions: No Reported Reaction, Motion Sickness Past Psychological History: No Psychological Hx Reported Smoking Status: Never smoker Past Alcohol Use History: None Reported Past Drug Use History: None Reported - Past Family History Sister(s) Family Medical History: Cancer Brother(s) Family Medical History: Cancer General Exam Limitations: no limitations General appearance: alert, in no apparent distress Head exam: Present: atraumatic, normocephalic, normal inspection Eye exam: Present: normal appearance, PERRL, EOMI. Absent: scleral icterus, conjunctival injection, periorbital swelling ENT exam: Present: normal exam, mucous membranes moist Neck exam: Present: normal inspection. Absent: tenderness, meningismus, lymphadenopathy Respiratory exam: Present: normal lung sounds bilaterally. Absent: respiratory distress, wheezes, rales, rhonchi, stridor Cardiovascular Exam: Present: regular rate, normal rhythm, normal heart sounds. Absent: systolic murmur, diastolic murmur, rubs, gallop, clicks GI/Abdominal exam: Present: soft, normal bowel sounds. Absent: distended, tenderness, guarding, rebound, rigid Extremities exam: Present: normal inspection, full ROM, normal capillary refill. Absent: tenderness, pedal edema, joint swelling, calf tenderness Back exam: Present: normal inspection Neurological exam: Present: alert, oriented X3, CN II-XII intact Psychiatric exam: Present: normal affect, normal mood Skin exam: Present: warm, dry, intact, normal color. Absent: rash Course Vital Signs 03/13/24 03/13/24 16:29 18:34 Temperature 98.2 F Pulse Rate 93 82 Respiratory 19 18 Rate Blood Pressure 166/74 141/63 O2 Sat by Pulse 97 96 Oximetry - Reevaluation(s) Reevaluation #1: 03/13/24 17:10 Medical records reviewed Reevaluation #2: 03/13/24 17:10 Patient symptoms unchanged Reevaluation #3: 03/13/24 17:10 Patient informed of results questions answered Reevaluation #4: Was pt. sent in by a medical professional or institution (, PA, CYTOTECHNOLOGIST/HISTOTECHNOLOGIST, urgent care, hospital, or longterm...) When possible be specific @ -no Did you speak to anyone other than the patient for history (EMS, parent, family, police, friend...)? What history was obtained from this source @ -no Did you review nursing and triage notes (agree or disagree)? Why? @ -agree Are old charts reviewed (outside hosp., previous admission, EMS record, old EKG, old radiological studies, urgent care reports/EKG's, longterm records)? Report findings @ -yes Differential Diagnosis (chest pain, altered mental status, abdominal pain women, abdominal pain men, vaginal bleeding, weakness, fever, dyspnea, syncope, headache, dizziness, GI bleed, back pain, seizure, CVA, palpatations, mental health, musculoskeletal)? @ -prior EKG interpreted by me (3pts min.). @ -no X-rays interpreted by me (1pt min.). @ -no CT interpreted by me (1pt min.). @ -yes positive for maxillary and nasal bone fracture U/S interpreted by me (1pt. min.). @ -no What testing was considered but not performed or refused? (CT, X-rays, U/S, labs)? Why? @ -none What meds were considered but not given or refused? Why? @ -none Did you discuss the management of the patient with other professionals (professionals i.e. , PA, CYTOTECHNOLOGIST/HISTOTECHNOLOGIST, lab, RT, psych nurse, social director, motor coach operator, teacher, hotel security officer, correctional case records supervisor)? Give summary @ -no Was smoking cessation discussed for >3mins.? @ -no Was critical care preformed (if so, how long)? @ -no Were there social determinants of health that impacted care today? How? (Homelessness, low income, unemployed, alcoholism, drug addiction, transportation, low edu. Level, literacy, decrease access to med. care, half-way, rehab)? @ -none Was there de-escalation of care discussed even if they declined (Discuss DNR or withdrawal of care, Hospice)? DNR status @ -no What co-morbidities impacted this encounter? (DM, HTN, Smoking, COPD, CAD, Cancer, CVA, ARF, Chemo, Hep., AIDS, mental health diagnosis, sleep apnea, morbid obesity)? @ -none Was patient admitted / discharged? Hospital course, mention meds given and route, prescriptions, significant lab abnormalities, going to OR and other pertinent info. @ - 73 female with a fall from standing subjecting herself to nasal fracture left maxillary fracture minimal blood maxillary sinus, patient has no headache here in the ER and can be discharged home Discharge Undiagnosed new problem with uncertain prognosis? @ -no Drug Therapy requiring intensive monitoring for toxicity (Heparin, Nitro, Insulin, Cardizem)? @ -no Were any procedures done? @ -no Diagnosis/symptom? @ -Nasal pain Maxibolin fracture Acute, or Chronic, or Acute on Chronic? @ -Acute Uncomplicated (without systemic symptoms) or Complicated (systemic symptoms)? @ -Complicated Side effects of treatment? @ -no Exacerbation, Progression, or Severe Exacerbation? @ -exacerbation Poses a threat to life or bodily function? How? (Chest pain, [place], [place], pneumonia, PE, COPD, DKA, ARF, appy, cholecystitis, CVA, Diverticulitis, Homicidal, Suicidal, threat to staff... and all critical care pts) @ -yes with head injury Medical Decision Making - Medical Decision Making 73 female with a fall from standing subjecting herself to nasal fracture left maxillary fracture minimal blood maxillary sinus, patient has no headache here in the ER and can be discharged home - Radiology Data Radiology results: report reviewed (CT brain C-spine facial bones facial fracture left maxillary bone, nasal fracture), image reviewed Disposition Clinical Impression: Head injury, Left maxillary fracture, Nasal fracture, Fall Disposition: HOME SELF-CARE Condition: Good Instructions (If sedation given, give patient instructions): Facial Fracture (ED) Is patient prescribed a controlled substance at d/c from ED?: No Referrals: Moe Crawford MD [Primary Care Provider] - 1-2 days Carter Amor DDS [STAFF PHYSICIAN] - 1-2 days Jd Monzon DDS [STAFF PHYSICIAN] - 1-2 days Time of Disposition: 18:30
--- NOTE | 2024-03-13 18:12 | CT ---
EXAMINATION TYPE: CT brain cspine wo con, CT facial bones wo con CT DLP: Combined dlp 1123.5 mGycm, Automated exposure control for dose reduction was used. DATE OF EXAM: 03/13/2024 5:39 PM COMPARISON: 12/29/2023. CLINICAL INDICATION: Female, 73 years old with history of fall; Fall TECHNIQUE: Brain: Multiple axial CT images of the brain were obtained without IV contrast. Cspine: Axial CT images from the skull base to the inferior aspect of T2 we obtained without intraven ous contrast. Coronal and sagittal reformatted images were also reviewed. Facial: Axial imaging of the facial structures with sagittal and coronal reformats. FINDINGS: Brain: Extra-axial spaces: No abnormal extra-axial fluid collections. Ventricular system: Within normal limits Cerebral parenchyma: Similar white matter change/remote injury of the right frontal lobe No acute int raparenchymal hemorrhage or mass effect. The remainder of the german-white junctions are well differen tiated. Cerebellum: Unremarkable. Mass effect: No evidence of midline shift. Intracranial vasculature: unremarkable Soft tissues: Normal. Calvarium/osseous structures: No depressed skull fracture. Paranasal sinuses and mastoid air cells: Clear. Visualized orbits: Bilateral aphakia Cervical spine: Fracture: None. Osseous structures: Multilevel degenerative disc disease changes with endplate spurring and disc oste ophyte complex's. Large osteophytes are present. Vertebral alignment: Within normal limits. Spinal canal/Neural Foramina: Disc osteophyte complexes at C5-C6 with at least mild spinal canal sten osis. No evidence for significant neural foraminal stenosis. Neck soft tissues: Prevertebral soft tissues are within normal limits. Other: The airway is patent. The lung apices are clear. Facial: Soft tissue swelling around the left cheek. There is lucency through the lateral left maxilla ry sinus wall with layering blood products. This is not significantly displaced. Fracture line also s een extending through the left nasal bone series 214 image 44 IMPRESSION: 1. No acute intracranial process. 2. Minimally displaced left lateral maxillary sinus and inferior sinus wall fracture. Layering blood products in the maxillary sinus. Additional fracture of the left side of the nose also is suggested. 3. No evidence of cervical spine fracture. 4. Moderate to severe multilevel degenerative disc disease. 5. Similar prior right frontal lobe injury with subtle malacia. [facility], , 03/13/2024 6:09 PM
[2024-03-13] MEDS: MORPHINE SULFATE 4 MG/ML SYRINGE IM STA (18:17)
[2024-03-13 18:34] VITALS: BP 141/63; PULSE 82; RESP 18
== END 2024-03-13 18:42 | disposition home or self-care (01) ==
LOC: EC 16:28
CPT/HCPCS: 70450; 70486; 72125; 96372; 99284